=== PATIENT | female | born 1990 | race Caucasian/White ===

== ENCOUNTER 2017-12-15 01:01 | Emergency (ER) | payer BC ==
[2017-12-15 01:09] VITALS: RESP 18; TEMP 97.9
[2017-12-15] MEDS ORDERED: ACETAMINOPHEN TAB 500 MG TAB PO STA (02:16)
--- NOTE | 2017-12-15 02:22 | XR ---
EXAMINATION TYPE: XR foot complete RT DATE OF EXAM: 12/15/2017 COMPARISON: NONE HISTORY: Foot pain TECHNIQUE: 3 views FINDINGS: I see no fracture nor dislocation. Joint spaces are normal. Metatarsals are intact. IMPRESSION: Negative right foot exam.
[2017-12-15] MEDS ORDERED: KETOROLAC 30 MG/ML 1 ML VIAL IM STA (03:22)
--- NOTE | 2017-12-15 03:24 | XR ---
EXAMINATION TYPE: XR ankle complete RT DATE OF EXAM: 12/15/2017 COMPARISON: NONE HISTORY: Ankle pain TECHNIQUE: 3 views FINDINGS: Ankle mortise is anatomic. I see no fracture nor dislocation. IMPRESSION: Normal right ankle.
[2017-12-15] MEDS ORDERED: KETOROLAC 30 MG/ML 1 ML VIAL IVP STA (03:40)
[2017-12-15 06:31] VITALS: BP 96/54; PULSE 97
--- NOTE | 2017-12-15 06:53 | US ---
EXAM: US Duplex Right Lower Extremity Veins CLINICAL HISTORY: Reason: Pain TECHNIQUE: Real-time duplex ultrasound scan of the right lower extremity veins integrating B-mode two-dimensional vascular structure, Doppler spectral analysis, color flow Doppler imaging and compression. COMPARISON: No relevant prior studies available. FINDINGS: Deep veins: Unremarkable. No DVT in the visualized common femoral, femoral, proximal deep femoral or popliteal veins. The veins demonstrate normal color flow, are normally compressible, with normal phasic flow and/or augmentation response. Superficial veins: No thrombus in the visualized great saphenous vein. IMPRESSION: No evidence of deep venous thrombosis.
--- NOTE | 2017-12-15 07:09 | ED ---
Lower Extremity Injury HPI - General Chief Complaint: Extremity Injury, Lower Stated Complaint: Ankle injury Time Seen by Provider: 12/15/17 01:11 Source: patient Mode of arrival: wheelchair Limitations: no limitations - History of Present Illness Initial Comments: 7 years old lady injured her right foot and she said The steps no complaining about the pain in the right foot and she said she's having some discomfort in the ankle as well and no leg feels stiff may she feels discomfort in the whole right clavicle no other injuries no headaches no neck stiffness no chest pain or shortness of breath she does smoke and denies any history of PE or DVT - Related Data Home Medications Medication Instructions Recorded Confirmed Sertraline [Zoloft] 200 mg PO DAILY 10/20/13 12/15/17 Allergies Allergy/AdvReac Type Severity Reaction Status Date / Time No Known Allergies Allergy Verified 12/15/17 01:09 Review of Systems ROS Statement: Those systems with pertinent positive or pertinent negative responses have been documented in the HPI. ROS Other: All systems not noted in ROS Statement are negative. Past Medical History Past Medical History: No Reported History History of Any Multi-Drug Resistant Organisms: None Reported Past Surgical History: No Surgical Hx Reported Past Anesthesia/Blood Transfusion Reactions: No Reported Reaction Past Psychological History: Anxiety, Depression Smoking Status: Current every day smoker Past Alcohol Use History: None Reported Past Drug Use History: None Reported - Past Family History Mother Family Medical History: No Reported History General Exam - General Exam Comments Initial Comments: General: The patient is awake and alert, in no distress, and does not appear acutely ill. Skin: Skin is warm and dry and no rashes or lesions are noted. Eye: Pupils are equal, round and reactive to light, extra-ocular movements are intact; there is normal conjunctiva bilaterally. Ears, nose, mouth and throat: There are moist mucous membranes and no oral lesions. Neck: The neck is supple, there is no tenderness or JVD. Cardiovascular: There is a regular rate and rhythm. No murmur, rub or gallop is appreciated. Respiratory: To auscultation bilateral, no wheezing no rhonchi no distress respiratory henderson noticed Gastrointestinal: Soft, non-distended, non-tender abdomen without masses or organomegaly noted. There is no rebound or guarding present. Bowel sounds are unremarkable. Back: There is no tenderness to palpation in the midline. There is no obvious deformity. Musculoskeletal: Right foot noticed some mild tenderness on the dorsal surface she is also tender in the plantar surface at the distal part of the second and third metatarsal tender calves as well as the distal posterior right thigh Neurological: CN II-XII intact, Cranial nerves III through XII are intact. There are no obvious motor or sensory deficits. Coordination appears grossly intact. Speech is normal. Psychiatric: Cooperative, appropriate mood & affect, normal judgment. Limitations: no limitations Course Vital Signs 12/15/17 12/15/17 12/15/17 01:04 03:39 05:24 Temperature 97.9 F Pulse Rate 110 H 87 71 Respiratory 18 18 18 Rate Blood Pressure 147/97 118/57 121/53 O2 Sat by Pulse 99 98 97 Oximetry 12/15/17 06:29 Temperature Pulse Rate 97 Respiratory 18 Rate Blood Pressure 96/54 O2 Sat by Pulse 100 Oximetry Medical Decision Making - Lab Data Lab Results 12/15/17 Range/Units 03:37 D-Dimer 0.64 H (<0.60) mg/L FEU Disposition Clinical Impression: Elevated d-dimer, Foot injury, Pain in right leg Disposition: HOME SELF-CARE Condition: Good Instructions: Foot Sprain (ED) Additional Instructions: She is given a prescription for the crutches advised to ice and elevation and Advil on an as-needed basis Is patient prescribed a controlled substance at d/c from ED?: No Referrals: None,Stated [Primary Care Provider] - 1-2 days Kizzy Coy MD [STAFF PHYSICIAN] - 1-2 days
== END 2017-12-15 07:28 | disposition home or self-care (01) ==
LOC: EC 01:01
DX: S99.921A Unspecified injury of right foot, initial encounter (principal); R79.1 Abnormal coagulation profile; F32.9 Major depressive disorder, single episode, unspecified; F41.9 Anxiety disorder, unspecified; F17.200 Nicotine dependence, unspecified, uncomplicated; Z53.8 Procedure and treatment not carried out for other reasons; Z79.899 Other long term (current) drug therapy; W10.9XXA Fall (on) (from) unspecified stairs and steps, initial encounter
CPT/HCPCS: 36415; 85379; 73610; 73630; 93971; 99284; 96374; J1885

== ENCOUNTER 2017-12-19 20:14 | Emergency (ER) | payer BC, OTHER ==
[2017-12-19] MEDS ORDERED: SODIUM CHLORIDE 0.9% 1,000 ML IV ONE (21:30)
--- NOTE | 2017-12-19 21:30 | ED ---
General Adult HPI - General Chief complaint: Recheck/Abnormal Lab/Rx Stated complaint: Fall Time Seen by Provider: 12/19/17 21:03 Source: patient Mode of arrival: ambulatory Limitations: no limitations - History of Present Illness Initial comments: Patient is a 27-year-old female who presents for possible . She states that 6 months ago, she took 5 tests at home which are positive and then she follow-up with her doctor and was told that she then had negative tests. She had regular menses in between and her last menstrual period was one month ago. However, she took 2 tests today and decided to come in because of the inconsistencies 6 months ago. She is also concerned because approximately one week ago she fell down one step landing her buttocks but did not injure her abdomen. Also, she is adamant that she has not had any abdominal pain, urinary symptoms, vaginal bleeding or even slight cramping. - Related Data Home Medications Medication Instructions Recorded Confirmed Desvenlafaxine [Desvenlafaxine ER] 50 mg PO DAILY 12/19/17 12/19/17 Gabapentin [Neurontin] 200 mg PO QAM 12/19/17 12/19/17 Gabapentin [Neurontin] 300 mg PO BID 12/19/17 12/19/17 LORazepam [Ativan] 1 mg PO DAILY PRN 12/19/17 12/19/17 Allergies Allergy/AdvReac Type Severity Reaction Status Date / Time No Known Allergies Allergy Verified 12/19/17 21:02 Review of Systems ROS Statement: Those systems with pertinent positive or pertinent negative responses have been documented in the HPI. Constitutional: Negative for chills, fatigue and fever. HENT: Negative for congestion. Respiratory: Negative for chest tightness, shortness of breath and wheezing. Negative for cough Cardiovascular: Negative for chest pain and palpitations. Gastrointestinal: Negative for abdominal pain. Negative for abdominal distention , diarrhea, nausea and vomiting. Genitourinary: Negative for dysuria. Musculoskeletal: Negative for back pain, neck pain and neck stiffness. Skin: Negative for color change. Neurological: Negative for dizziness, speech difficulty, weakness and light- headedness. Psychiatric/Behavioral: Negative for agitation and confusion. Negative for anxiety ROS Other: All systems not noted in ROS Statement are negative. Past Medical History Past Medical History: No Reported History History of Any Multi-Drug Resistant Organisms: None Reported Past Surgical History: No Surgical Hx Reported Past Anesthesia/Blood Transfusion Reactions: No Reported Reaction Past Psychological History: Anxiety, Depression, Panic Disorder, PTSD Smoking Status: Current every day smoker Past Alcohol Use History: Occasional Past Drug Use History: Marijuana - Past Family History Mother Family Medical History: No Reported History General Exam - General Exam Comments Initial Comments: Constitutional: Pt is oriented to person, place, and time. Pt appears well- developed and well-nourished. No distress. HENT: Head: Normocephalic and atraumatic. Eyes: EOM are normal. Neck: Normal range of motion. Neck supple. Cardiovascular: Normal rate, regular rhythm, S1 normal, S2 normal and normal heart sounds. Exam reveals no gallop and no friction rub. No murmur heard. Pulmonary/Chest: Effort normal and breath sounds normal. No tachypnea and no bradypnea. No respiratory distress. No wheezes or rales noted. Abdominal: Soft. Bowel sounds are normal. Pt exhibits no shifting dullness, no distension, no pulsatile liver, no fluid wave, no abdominal bruit and no ascites. There is no tenderness. There is no rigidity, no rebound, no guarding, no tenderness at McBurney's point and negative Javier's sign. Musculoskeletal: Normal range of motion. Neurological: Pt is alert and oriented to person, place, and time. No cranial nerve deficit. Skin: Skin is warm and dry. No rash noted. Pt is not diaphoretic. No erythema. No pallor. Psychiatric: Pt has a normal mood and affect. Pt behavior is normal. Thought content normal. Limitations: no limitations Course Vital Signs 12/19/17 20:37 Temperature 98.3 F Pulse Rate 103 H Respiratory 18 Rate Blood Pressure 145/85 O2 Sat by Pulse 99 Oximetry Medical Decision Making - Medical Decision Making Laboratory studies showed that there is no evidence of urinary tract infection or a letter lites derangements. On reexamination, the patient was not tachycardic and fluids were not given as the patient was a difficult IV stick. Because the patient was tolerating by mouth, it was determined that the patient could be by mouth fluid resuscitated. Additionally, beta hCG was measured at 13 ,931. He was advised to the patient that because she was not having any abdominal pain, vaginal bleeding, urinary symptoms, transvaginal ultrasound could be performed on an outpatient basis. Patient was agreeable to plan and stated that she did have an geothermal sheet metal worker that she do follow up with.Explained all labs and diagnostic test results and that we will discharge the patient home and patient is to follow up with OB in 1-2 days and return to the ED if symptoms worsen. Pt is agreeable to plan. - Lab Data Result diagrams: 12/19/17 21:28 Lab Results 12/19/17 12/19/17 Range/Units 21:21 21:28 Sodium 138 (137-145) mmol/L Potassium 3.9 (3.5-5.1) mmol/L Chloride 105 (98-107) mmol/L Carbon Dioxide 19 L (22-30) mmol/L Anion Gap 14 mmol/L BUN 13 (7-17) mg/dL Creatinine 0.60 (0.52-1.04) mg/dL Est GFR (CKD-EPI)AfAm >90 (>60 ml/min/1.73 sqM) Est GFR (CKD-EPI)NonAf >90 (>60 ml/min/1.73 sqM) Glucose 109 H (74-99) mg/dL Calcium 9.3 (8.4-10.2) mg/dL Magnesium 1.8 (1.6-2.3) mg/dL Total Bilirubin 0.3 (0.2-1.3) mg/dL AST 21 (14-36) U/L ALT 23 (9-52) U/L Alkaline Phosphatase 85 (38-126) U/L Total Protein 6.9 (6.3-8.2) g/dL Albumin 4.2 (3.5-5.0) g/dL HCG, Quant 36754.5 mIU/mL Urine Color Yellow Urine Appearance Cloudy H (Clear) Urine pH 6.0 (5.0-8.0) Ur Specific [place] 1.024 (1.001-1.035) Urine Protein Negative (Negative) Urine Glucose (UA) Negative (Negative) Urine Ketones Trace H (Negative) Urine Blood Negative (Negative) Urine Nitrite Negative (Negative) Urine Bilirubin Negative (Negative) Urine Urobilinogen 2.0 (<2.0) mg/dL Ur Leukocyte Esterase Small H (Negative) Urine RBC 1 (0-5) /hpf Urine WBC 1 (0-5) /hpf Ur Squamous Epith Cells 11 H (0-4) /hpf Urine Bacteria Rare H (None) /hpf Urine Mucus Rare H (None) /hpf Disposition Clinical Impression: Disposition: HOME SELF-CARE Condition: Good Instructions: (ED) Is patient prescribed a controlled substance at d/c from ED?: No Referrals: None,Stated [Primary Care Provider] - 1-2 days Dolores Latham DO [Doctor of Osteopathic Medicine] - 1-2 days Time of Disposition: 23:01
[2017-12-19 21:55] LABS: Appearance,Urine Cloudy (Clear); Bacteria,Urine Rare /hpf; Bilirubin,Urine Negative (Negative); Blood,Urine Negative (Negative); Color,Urine Yellow; Glucose,Urine (UA) Negative (Negative); Ketones,Urine Trace (Negative); Leukocyte Esterase,Urine Small (Negative); Mucus,Urine Rare /hpf; Nitrite,Urine Negative (Negative); Protein,Urine Negative (Negative); RBC,Urine 1 /hpf (0-5); Specific Gravity,Urine 1.024 (1.001-1.035); Squamous Epithelial Cell,Urine 11 /hpf (0-4); WBC,Urine 1 /hpf (0-5)
[2017-12-19 22:01] LABS: ALT 23 U/L (9-52); AST 21 U/L (14-36); Albumin 4.2 g/dL (3.5-5.0); Alkaline Phosphatase 85 U/L (38-126); Anion Gap 14 mmol/L; Blood Urea Nitrogen 13 mg/dL (7-17); Calcium 9.3 mg/dL (8.4-10.2); Carbon Dioxide 19 mmol/L (22-30); Chloride 105 mmol/L (98-107); Glucose 109 mg/dL (74-99); Magnesium 1.8 mg/dL (1.6-2.3); Potassium 3.9 mmol/L (3.5-5.1); Sodium 138 mmol/L (137-145); Total Bilirubin 0.3 mg/dL (0.2-1.3); Total Protein 6.9 g/dL (6.3-8.2)
[2017-12-19 22:17] LABS: HCG,Quantitative Serum 13931.5 mIU/mL
[2017-12-19 23:28] VITALS: BP 132/68; PULSE 98; RESP 17; TEMP 97.6
== END 2017-12-19 23:28 | disposition home or self-care (01) ==
LOC: EC 20:14
DX: Z32.01 Encounter for pregnancy test, result positive (principal); F41.0 Panic disorder [episodic paroxysmal anxiety]; F32.9 Major depressive disorder, single episode, unspecified; F43.10 Post-traumatic stress disorder, unspecified; F17.200 Nicotine dependence, unspecified, uncomplicated; Z79.899 Other long term (current) drug therapy; W10.9XXA Fall (on) (from) unspecified stairs and steps, initial encounter; Z53.8 Procedure and treatment not carried out for other reasons
CPT/HCPCS: 36415; 80053; 81001; 83735; 84702; 99283

== ENCOUNTER 2018-01-24 14:50 | Emergency (ER) | payer OTHER ==
[2018-01-24 15:01] VITALS: RESP 18
[2018-01-24] MEDS ORDERED: SODIUM CHLORIDE 0.9% 1,000 ML IV STA ×2 (15:10)
--- NOTE | 2018-01-24 15:13 | ED ---
Abdominal Pain HPI - General Chief Complaint: Abdominal Pain Stated Complaint: 11 wks preg, Cramping Time Seen by Provider: 01/24/18 15:00 Source: patient, RN notes reviewed, old records reviewed Mode of arrival: ambulatory Limitations: no limitations - History of Present Illness Initial Comments: This Patient is a 27-year-old female presents emergency department today with chief complaint of abdominal cramping. Patient states that she is currently 11 weeks . Patient states that her LEGAL OPERATIONS MANAGER is Dr. Ferrer. Patient states that she has been having some cramping for the past 2 days. She denies any other symptoms associated with the cramping. She denies any vaginal bleeding, or vaginal discharge. She denies any dysuria or hematuria. She denies any diarrhea, nausea or vomiting. Patient states she was concerned due to the history of previous miscarriage 9 months ago. She states that she just wanted to confirm that everything was okay. - Related Data Home Medications Medication Instructions Recorded Confirmed Desvenlafaxine [Desvenlafaxine ER] 50 mg PO DAILY 12/19/17 12/19/17 Gabapentin [Neurontin] 200 mg PO QAM 12/19/17 12/19/17 Gabapentin [Neurontin] 300 mg PO BID 12/19/17 12/19/17 LORazepam [Ativan] 1 mg PO DAILY PRN 12/19/17 12/19/17 Allergies Allergy/AdvReac Type Severity Reaction Status Date / Time No Known Allergies Allergy Verified 01/24/18 14:58 Review of Systems ROS Statement: Those systems with pertinent positive or pertinent negative responses have been documented in the HPI. ROS Other: All systems not noted in ROS Statement are negative. Past Medical History Past Medical History: No Reported History History of Any Multi-Drug Resistant Organisms: None Reported Past Surgical History: No Surgical Hx Reported Past Anesthesia/Blood Transfusion Reactions: No Reported Reaction Past Psychological History: Anxiety, Depression, Panic Disorder, PTSD Smoking Status: Current every day smoker Past Alcohol Use History: Occasional Past Drug Use History: Marijuana - Past Family History Mother Family Medical History: No Reported History General Exam - General Exam Comments Initial Comments: 27-year-old male. Alert and oriented. Limitations: no limitations General appearance: alert, in no apparent distress Head exam: Present: atraumatic, normocephalic, normal inspection Eye exam: Present: normal appearance, PERRL, EOMI. Absent: scleral icterus, conjunctival injection, periorbital swelling ENT exam: Present: normal exam, mucous membranes moist Neck exam: Present: normal inspection. Absent: tenderness, meningismus, lymphadenopathy Respiratory exam: Present: normal lung sounds bilaterally. Absent: respiratory distress, wheezes, rales, rhonchi, stridor Cardiovascular Exam: Present: regular rate, normal rhythm, normal heart sounds. Absent: systolic murmur, diastolic murmur, rubs, gallop, clicks GI/Abdominal exam: Present: soft, normal bowel sounds. Absent: distended, tenderness, guarding, rebound, rigid Extremities exam: Present: normal inspection, full ROM, normal capillary refill. Absent: tenderness, pedal edema, joint swelling, calf tenderness Back exam: Present: normal inspection Neurological exam: Present: alert, oriented X3, CN II-XII intact Psychiatric exam: Present: normal affect, normal mood Course Vital Signs 01/24/18 01/24/18 14:58 18:32 Temperature 98.0 F 97.6 F Pulse Rate 87 76 Respiratory 18 18 Rate Blood Pressure 140/62 132/71 O2 Sat by Pulse 98 98 Oximetry Medical Decision Making - Medical Decision Making This Patient is a 27-year-old female. Alert and oriented. No acute distress. 27-year-old female presents emergency department today with chief complaint of abdominal cramping. Patient states that she is currently 11 weeks . Patient states that her LEGAL OPERATIONS MANAGER is Dr. Ferrer. Patient states that she has been having some cramping for the past 2 days. She denies any other symptoms associated with the cramping. She denies any vaginal bleeding, or vaginal discharge. She has no abodmnal tenderness, denies leaking or vaginal bleeding. At this time labs obtained. Rh Positive. HCG is 58,000. Patient US is positive for 10 week IUP, [id number] HR. Patient feels well, has no other cramping and pain. Patient has been advised to follow up with PCP and return parameters were discussed. - Lab Data Result diagrams: 01/24/18 15:25 01/24/18 15:25 Lab Results 01/24/18 01/24/18 01/24/18 Range/Units 15:25 15:25 15:25 WBC 12.1 H (3.8-10.6) k/uL RBC 5.13 (3.80-5.40) m/uL Hgb 11.8 (11.4-16.0) gm/dL Hct 35.9 (34.0-46.0) % MCV 69.9 L (80.0-100.0) fL MCH 22.9 L (25.0-35.0) pg MCHC 32.8 (31.0-37.0) g/dL RDW 13.8 (11.5-15.5) % Plt Count 305 (150-450) k/uL Neutrophils % 70 % Lymphocytes % 23 % Monocytes % 4 % Eosinophils % 1 % Basophils % 0 % Neutrophils # 8.5 H (1.3-7.7) k/uL Lymphocytes # 2.8 (1.0-4.8) k/uL Monocytes # 0.5 (0-1.0) k/uL Eosinophils # 0.1 (0-0.7) k/uL Basophils # 0.0 (0-0.2) k/uL Microcytosis Moderate Sodium 139 (137-145) mmol/L Potassium 3.7 (3.5-5.1) mmol/L Chloride 109 H (98-107) mmol/L Carbon Dioxide 22 (22-30) mmol/L Anion Gap 8 mmol/L BUN 11 (7-17) mg/dL Creatinine 0.58 (0.52-1.04) mg/dL Est GFR (CKD-EPI)AfAm >90 (>60 ml/min/1.73 sqM) Est GFR (CKD-EPI)NonAf >90 (>60 ml/min/1.73 sqM) Glucose 99 (74-99) mg/dL Calcium 9.6 (8.4-10.2) mg/dL Total Bilirubin 0.2 (0.2-1.3) mg/dL AST 20 (14-36) U/L ALT 30 (9-52) U/L Alkaline Phosphatase 65 (38-126) U/L Total Protein 6.5 (6.3-8.2) g/dL Albumin 3.8 (3.5-5.0) g/dL Amylase 57 (30-110) U/L Lipase 68 (23-300) U/L HCG, Quant 92449.7 mIU/mL Urine Color Urine Appearance (Clear) Urine pH (5.0-8.0) Ur Specific [place] (1.001-1.035) Urine Protein (Negative) Urine Glucose (UA) (Negative) Urine Ketones (Negative) Urine Blood (Negative) Urine Nitrite (Negative) Urine Bilirubin (Negative) Urine Urobilinogen (<2.0) mg/dL Ur Leukocyte Esterase (Negative) Urine RBC (0-5) /hpf Urine WBC (0-5) /hpf Ur Squamous Epith Cells (0-4) /hpf Urine Mucus (None) /hpf Blood Type O Positive Blood Type Recheck [facility] 01/24/18 Range/Units 15:25 WBC (3.8-10.6) k/uL RBC (3.80-5.40) m/uL Hgb (11.4-16.0) gm/dL Hct (34.0-46.0) % MCV (80.0-100.0) fL MCH (25.0-35.0) pg MCHC (31.0-37.0) g/dL RDW (11.5-15.5) % Plt Count (150-450) k/uL Neutrophils % % Lymphocytes % % Monocytes % % Eosinophils % % Basophils % % Neutrophils # (1.3-7.7) k/uL Lymphocytes # (1.0-4.8) k/uL Monocytes # (0-1.0) k/uL Eosinophils # (0-0.7) k/uL Basophils # (0-0.2) k/uL Microcytosis Sodium (137-145) mmol/L Potassium (3.5-5.1) mmol/L Chloride (98-107) mmol/L Carbon Dioxide (22-30) mmol/L Anion Gap mmol/L BUN (7-17) mg/dL Creatinine (0.52-1.04) mg/dL Est GFR (CKD-EPI)AfAm (>60 ml/min/1.73 sqM) Est GFR (CKD-EPI)NonAf (>60 ml/min/1.73 sqM) Glucose (74-99) mg/dL Calcium (8.4-10.2) mg/dL Total Bilirubin (0.2-1.3) mg/dL AST (14-36) U/L ALT (9-52) U/L Alkaline Phosphatase (38-126) U/L Total Protein (6.3-8.2) g/dL Albumin (3.5-5.0) g/dL Amylase (30-110) U/L Lipase (23-300) U/L HCG, Quant mIU/mL Urine Color Yellow Urine Appearance Cloudy H (Clear) Urine pH 5.5 (5.0-8.0) Ur Specific [place] 1.028 (1.001-1.035) Urine Protein Trace H (Negative) Urine Glucose (UA) Negative (Negative) Urine Ketones Negative (Negative) Urine Blood Negative (Negative) Urine Nitrite Negative (Negative) Urine Bilirubin Negative (Negative) Urine Urobilinogen <2.0 (<2.0) mg/dL Ur Leukocyte Esterase Moderate H (Negative) Urine RBC 2 (0-5) /hpf Urine WBC 5 (0-5) /hpf Ur Squamous Epith Cells 49 H (0-4) /hpf Urine Mucus Occasional H (None) /hpf Blood Type Blood Type Recheck - Radiology Data Radiology results: report reviewed Normal 3 view hand. All 4 do left wrist. Single IUP measuring 10 weeks and 4 days. Isn't current crown-rump length. Cardiac activity 163 beats were minute. Disposition Clinical Impression: Abdominal cramping affecting , 10 weeks gestation of Disposition: HOME SELF-CARE Condition: Good Instructions: Abdominal Pain in (ED) Additional Instructions: Patient can take Tylenol for pain. Patient should follow-up with LEGAL OPERATIONS MANAGER. Return to emergency department if any alarming signs or symptoms occur. Is patient prescribed a controlled substance at d/c from ED?: No Referrals: None,Stated [Primary Care Provider] - 1-2 days Time of Disposition: 18:05
[2018-01-24 15:41] LABS: Basophils % (A) 0 %; Eosinophils # (A) 0.1 k/uL (0-0.7); Eosinophils % (A) 1 %; HCT 35.9 % (34.0-46.0); HGB 11.8 gm/dL (11.4-16.0); Lymphocytes # (A) 2.8 k/uL (1.0-4.8); Lymphocytes % (A) 23 %; MCH 22.9 pg (25.0-35.0); MCHC 32.8 g/dL (31.0-37.0); MCV 69.9 fL (80.0-100.0); Mean Platelet Volume 7.2; Microcytosis Moderate; Monocytes # (A) 0.5 k/uL (0-1.0); Monocytes % (A) 4 %; Neutrophils # (A) 8.5 k/uL (1.3-7.7); Neutrophils % (A) 70 %; Platelet Count 305 k/uL (150-450); RBC 5.13 m/uL (3.80-5.40); RDW 13.8 % (11.5-15.5); WBC 12.1 k/uL (3.8-10.6)
[2018-01-24 15:44] LABS: Appearance,Urine Cloudy (Clear); Bilirubin,Urine Negative (Negative); Blood,Urine Negative (Negative); Color,Urine Yellow; Glucose,Urine (UA) Negative (Negative); Ketones,Urine Negative (Negative); Leukocyte Esterase,Urine Moderate (Negative); Mucus,Urine Occasional /hpf; Nitrite,Urine Negative (Negative); PH, Urine 5.5 (5.0-8.0); Protein,Urine Trace (Negative); RBC,Urine 2 /hpf (0-5); Specific Gravity,Urine 1.028 (1.001-1.035); Squamous Epithelial Cell,Urine 49 /hpf (0-4); Urobilinogen,Urine <2.0 mg/dL (<2.0); WBC,Urine 5 /hpf (0-5)
[2018-01-24 15:49] LABS: ALT 30 U/L (9-52); AST 20 U/L (14-36); Albumin 3.8 g/dL (3.5-5.0); Alkaline Phosphatase 65 U/L (38-126); Amylase 57 U/L (30-110); Anion Gap 8 mmol/L; Blood Urea Nitrogen 11 mg/dL (7-17); Calcium 9.6 mg/dL (8.4-10.2); Carbon Dioxide 22 mmol/L (22-30); Chloride 109 mmol/L (98-107); Glucose 99 mg/dL (74-99); Lipase 68 U/L (23-300); Potassium 3.7 mmol/L (3.5-5.1); Sodium 139 mmol/L (137-145); Total Bilirubin 0.2 mg/dL (0.2-1.3); Total Protein 6.5 g/dL (6.3-8.2)
[2018-01-24 16:30] LABS: HCG,Quantitative Serum 58212.7 mIU/mL
--- NOTE | 2018-01-24 18:01 | US ---
EXAMINATION TYPE: Transabdominal DATE OF EXAM: 09/16/17 COMPARISON: NONE CLINICAL HISTORY: Pain. EXAM PERFORMED: Transvaginal (TV) and Transabdominal (TA) EXAM MEASUREMENTS: GESTATIONAL AGE / DATING Physician Established: (10 weeks/3 days) EDC: 08/19/18 Dates by LMP: LMP unknown Dates by First Scan: No previous this is first scan Dates by Current Scan for: (10 weeks/4 days) EDC: 08/18/18 MATERNAL ANATOMY Uterus: Retroverted, wnl; 13.1 x 8.2 x 8.9 cm Right Ovary: wnl, 2.9 x 1.6 x 1.1 cm Left Ovary: ?corpus luteum (1.8 x 1.7 x 1.9 cm); 3.2 x 2.2 x 2.1 cm Post CDS / Adnexa: wnl Presence of free fluid: No Presence of corpus luteal cyst: yes; Lt ovary 1.8 x 1.7 x 1.9 cm Presence of subchorionic bleed: No GESTATION / SURVEY CRL: 3.7 cm (10 weeks/4 days) Yolk Sac (normal less than 6mm): 4 mm Heart Rate: 163 bpm Rhythm: Normal IUP: Viable IUP Date of LMP: Unsure Beta HcG (if available): Not available at this time *Initially entered in 09/19/18 as TARA was supposed to be 08/19/18. IMPRESSION: 1. Single intrauterine gestation estimated at 10 weeks 4 days gestation based on current crown-rump l ength. Cardiac activity measures 163 bpm.
[2018-01-24 18:33] VITALS: BP 132/71; PULSE 76; TEMP 97.6
== END 2018-01-24 18:33 | disposition home or self-care (01) ==
LOC: EC 14:50
DX: O99.89 Other specified diseases and conditions complicating pregnancy, childbirth and the puerperium (principal); R10.9 Unspecified abdominal pain; O99.331 Smoking (tobacco) complicating pregnancy, first trimester; F17.200 Nicotine dependence, unspecified, uncomplicated; O99.341 Other mental disorders complicating pregnancy, first trimester; F41.9 Anxiety disorder, unspecified; F32.9 Major depressive disorder, single episode, unspecified; F43.10 Post-traumatic stress disorder, unspecified; Z3A.10 10 weeks gestation of pregnancy; Z79.899 Other long term (current) drug therapy
CPT/HCPCS: 36415; 76801; 76817; 80053; 81001; 82150; 83690; 84702; 85025; 86900; 86901; 87086; 96360; 96361; 99284

== ENCOUNTER 2018-06-19 15:27 | Outpatient (CLI) | payer SELFPAY ==
[2018-06-19 16:44] VITALS: PULSE 100; RESP 16; TEMP 97.5
== END 2018-06-19 16:45 | disposition home or self-care (01) ==
LOC: FBPOP 15:27
PROVIDERS: ATTEND Obstetrics & Gynecology
DX: O36.8130 Decreased fetal movements, third trimester, not applicable or unspecified (principal)
CPT/HCPCS: 59025; 99213

== ENCOUNTER → 2018-07-07 | Outpatient (CLI) | payer SELFPAY | END | disposition home or self-care (01) | LOC: LABWHC1 12:43 | PROVIDERS: ATTEND Otolaryngology | DX: E04.1 Nontoxic single thyroid nodule (principal) | CPT/HCPCS: 36415; 84439; 84443; 86376 ==

== ENCOUNTER → 2018-07-24 | Outpatient (CLI) | payer SELFPAY ==
--- NOTE | 2018-07-25 15:08 | US ---
EXAMINATION TYPE: US thyroid st tissue head/neck DATE OF EXAM: 07/24/2018 COMPARISON: NONE CLINICAL HISTORY: E04.1 thyroid nodule. Difficulty swallowing GLAND SIZE: Right Lobe: 4.8 x 1.8 x 1.8 cm Overall Parenchyma: homogenous Left Lobe: 4.7 x 1.6 x 1.9 cm Overall Parenchyma: homogeneous Isthmus Thickness: 0.4 cm NODULES RIGHT: # of nodules measured on right: 0 LEFT: # of nodules measured on left: 0 ISTHMUS: # of nodules measured in the isthmus: 0 Bilateral neck scanned, normal appearing lymph nodes noted IMPRESSION: Prominent size of the homogeneous thyroid gland with no discrete measurable thyroid nodule.
== END | disposition home or self-care (01) ==
LOC: RADUSWWP 16:37
PROVIDERS: ATTEND Otolaryngology
DX: E04.1 Nontoxic single thyroid nodule (principal)
CPT/HCPCS: 76536

== ENCOUNTER 2018-08-03 14:13 | Outpatient (CLI) | payer SELFPAY ==
[2018-08-03 15:48] VITALS: BP 135/74; PULSE 102; RESP 18; TEMP 97.9
--- NOTE | 2018-08-07 10:47 | P.MSEPDOC ---
Presenting Problems - Arrival Data Date of Arrival on Unit: 08/03/18 Time of Arrival on Unit: 14:20 Mode of Transport: Ambulatory - Complaint OB-Reason for Admission/Chief Complaint: Decreased Movement Comment: first child adopted out Medical History - Information : 3 Para: 2 Term: 2 : 0 Abortions: Spontaneous or Elective: 0 Number of Living Children: 2 - Gestational Age Gestational Age by TARA (wks/days): 37 Weeks and 5 Days Review of Systems - Review of Systems Constitutional: No problems Breast: No problems ENT: No problems Cardiovascular: No problems Respiratory: No problems Gastrointestinal: No problems Genitourinary: No problems Musculoskeletal: No problems Neurological: No problems Skin: No problems Vital Signs - Temperature Temperature: 97.9 F Temperature Source: Oral - Pulse Right Brachial Pulse Rate: 102 Pulse Assessment Method: Automatic Cuff - Respirations Respiratory Rate: 18 Oxygen Delivery Method: Room Air O2 Sat by Pulse Oximetry: 97 - Blood Pressure Right Arm Blood Pressure: 135/74 Blood Pressure Mean: 94 Blood Pressure Source: Automatic Cuff Medical Screen Scoring (Pre) - Cervical Exam Dilation: 1-3 cm = 1 Membranes: Intact - Uterine Contractions Frequency: N/A Duration: N/A Intensity: N/A - Maternal Vital Signs Maternal Temperature: N/A Maternal Blood Pressure: N/A Signs of Preeclampsia: N/A Maternal Respirations: N/A - Pain Assessment Pain Location and Character: Abdomen Pain Scale Used: Numeric (1 - 10) Pain Intensity: 1 Pain Description: *Acute Pain Frequency: Intermittent Pain Behavior: None Exhibited - Maternal Trauma Maternal Trauma: N/A - Assessment Baseline FHR: 140 Heart Rate - NICHD Category: Category I (Normal) = 0 NST: Reactive Position: N/A Station: N/A - Total Score Total Score (Pre): 1 - Level of Risk Level of Risk: Low (0-5) Physician Notification (Pre) - Physician Notified Physician Notified Date: 08/03/18 Physician Notified Time: 15:05 Physician/Practitioner Notifed:: yeni Spoke With: yeni New Order Received: Yes - Notification Comment Comment: discharge order Medical Screen Scoring (Post) - Cervical Exam Dilation: 1-3 cm = 1 Effacement: Exam Deferred - Uterine Contractions Frequency: N/A Duration: N/A Intensity: N/A - Maternal Vital Signs Maternal Temperature: N/A Signs of Preeclampsia: N/A Maternal Respirations: N/A - Pain Assessment Pain Scale Used: Numeric (1 - 10) Pain Intensity: 1 Pain Frequency: Intermittent - Maternal Trauma Maternal Trauma: N/A - Assessment Heart Rate: 140 Heart Rate - NICHD Category: Category I (Normal) = 0 NST: Reactive Position: N/A Station: N/A - Total Score Total Score (Post): 1 - Post Treatment Level of Risk Post Treatment Level of Risk: Low (0-5) Physician Notification (Post) - Physician Notified Physician Notified Date: 08/03/18 Physician Notified Time: 15:05 Physician/Practitioner Notified:: yeni New Order Received: No Disposition - Disposition OB Disposition: Physician follow up in office, Discharge to home Discharge Date: 08/03/18 Discharge Time: 15:20 I agree with the RN Medical Screening Exam: Yes Risk & Benefit of care provided described in d/c instruction: Yes Diagnosis: DECREASED MOVEMENTS, THIRD TRIMESTER, UNSP
== END 2018-08-03 15:20 | disposition home or self-care (01) ==
LOC: FBPOP 14:13
PROVIDERS: ATTEND Obstetrics & Gynecology
DX: O36.8130 Decreased fetal movements, third trimester, not applicable or unspecified (principal); Z3A.37 37 weeks gestation of pregnancy
CPT/HCPCS: 59025; 99213

== ENCOUNTER 2018-08-06 07:30 | Inpatient (IN) | payer OTHER ==
[2018-08-06] MEDS ORDERED: LIDOCAINE 0.5% (PF) 5 MG/ML (50 ML SDV) SQ PRN (07:56)
[2018-08-06] MEDS ORDERED: OXYTOCIN 10 UNIT/ML 1 ML VIAL IM PRN (07:56)
[2018-08-06] MEDS ORDERED: CARBOPROST TROMETHAMINE 250 MCG/ML 1 ML AMP IM PRN (07:56)
[2018-08-06] MEDS ORDERED: TERBUTALINE 1 MG/ML VIAL SQ PRN (07:56)
[2018-08-06] MEDS ORDERED: METHYLERGONOVINE 0.2 MG/ML 1 ML AMP IM PRN (07:56)
[2018-08-06] MEDS ORDERED: LACTATED RINGERS 1,000 ML IV SCH ×2 (08:00)
[2018-08-06 08:01] VITALS: BMI 38.7
--- NOTE | 2018-08-06 08:01 | P.HPOB ---
History of Present Illness H&P Date: 08/06/18 This is a 27 rolled white female 4 para 2012 EDC 08/19/2018 at 38 weeks gestation. Patient presents today in active spontaneous labor, strong regular uterine contractions. She denies fluid leakage or vaginal bleeding. Fetus is been active throughout the . Past medical history significant for anxiety and depression. Past surgical history is negative. Current medications gabapentin 3 times a day, vitamin daily, Pristiq 50 mg once daily. ALLERGIES none known. Family history significant for diabetes. Reproductive history significant for 2 previous spontaneous vaginal deliveries, both at 38 weeks gestation, uncomplicated. Social history patient is , she currently smokes one half pack per day tobacco daily, she denies alcohol or drug use. history is significant for blood type O+, rubella status immune. VDRL testing, urine culture, hepatitis B surface antigen, HIV testing, gonorrhea and chlamydia cultures, group B strep cultures all negative. One-hour Glucola 122. On exam this is a pleasant white female, she is 5 foot 1 inch, 220 pounds, vital signs are stable and she is afebrile. The general physical exam is within normal limits. Cervix is 7-8 cm dilated, 90% effaced, -1 station, vertex presentation, intact membranes. heart rate is in the 150s with reassuring pattern and accelerations noted. Impression: 38 week intrauterine , active spontaneous labor. All signs reassuring. Plan: Artificial amniorrhexis will be performed. Epidural likely placed per her request. Anticipating normal spontaneous vaginal delivery. Review of Systems Constitutional: Reports as per HPI Past Medical History Past Medical History: No Reported History History of Any Multi-Drug Resistant Organisms: None Reported Past Surgical History: No Surgical Hx Reported Past Anesthesia/Blood Transfusion Reactions: No Reported Reaction Smoking Status: Current every day smoker - Past Family History Mother Family Medical History: No Reported History Medications and Allergies Home Medications Medication Instructions Recorded Confirmed Type Desvenlafaxine [Desvenlafaxine ER] 50 mg PO DAILY MDD 50 mg 12/19/17 08/03/18 History Gabapentin [Neurontin] 300 mg PO BID 12/19/17 08/03/18 History Allergies Allergy/AdvReac Type Severity Reaction Status Date / Time No Known Allergies Allergy Verified 08/06/18 07:56 Exam Intake and Output 08/05/18 08/06/18 08/06/18 22:59 06:59 14:59 Other: Weight 96.162 kg See dictation under HPI please Assessment and Plan Assessment: 38 week intrauterine , active spontaneous labor. All signs reassuring. Plan: IV access is been obtained. Close maternal and surveillance. Artificial amniorrhexis will be performed. Anticipate normal spontaneous vaginal delivery. Time with Patient: Less than 30
[2018-08-06] MEDS ORDERED: SODIUM CHLORIDE 0.9% 100 ML BAG ONE (08:20)
[2018-08-06] MEDS ORDERED: ROPIVACAINE 5MG/ML 20ML VIAL ONE (08:20)
[2018-08-06] MEDS ORDERED: fentaNYL (PF) 50 MCG/ML 5 ML AMP ONE (08:20)
[2018-08-06 08:42] LABS: Basophils % (A) 0 %; Eosinophils # (A) 0.1 k/uL (0-0.7); Eosinophils % (A) 1 %; HGB 11.5 gm/dL (11.4-16.0); Lymphocytes # (A) 2.3 k/uL (1.0-4.8); Lymphocytes % (A) 18 %; MCHC 32.1 g/dL (31.0-37.0); MCV 74.8 fL (80.0-100.0); Mean Platelet Volume 8.8; Microcytosis Slight; Monocytes # (A) 0.6 k/uL (0-1.0); Monocytes % (A) 5 %; Neutrophils # (A) 9.4 k/uL (1.3-7.7); Neutrophils % (A) 75 %; Platelet Count 255 k/uL (150-450); RBC 4.81 m/uL (3.80-5.40); RDW 15.2 % (11.5-15.5); WBC 12.6 k/uL (3.8-10.6)
[2018-08-06] MEDS ORDERED: ACETAMINOPHEN TAB 325 MG TAB PO PRN (09:40)
[2018-08-06] MEDS ORDERED: BENZOCAINE/MENTHOL SPRAY 1 GM/SPRAY AEROSOL TOPICAL PRN (09:40)
[2018-08-06] MEDS ORDERED: diphenhydrAMINE 50 MG CAP PO PRN (09:40)
[2018-08-06] MEDS ORDERED: WITCH HAZEL 1 EACH MED..PAD TOPICAL PRN (09:40)
[2018-08-06] MEDS ORDERED: SIMETHICONE 80 MG CHEWABLE PO PRN (09:40)
[2018-08-06] MEDS ORDERED: ZOLPIDEM 5 MG TAB PO PRN (09:40)
[2018-08-06] MEDS ORDERED: diphenhydrAMINE 25 MG CAP PO PRN (09:40)
[2018-08-06] MEDS ORDERED: HYDROCORTISONE 2.5% RECTAL CREAM 30 GM TUBE RECTAL PRN (09:40)
[2018-08-06] MEDS ORDERED: diphenhydrAMINE 50 MG/ML 1 ML VIAL IVP PRN ×2 (09:40)
[2018-08-06] MEDS ORDERED: LANOLIN CREAM 5 GM TUBE TOPICAL PRN (09:40)
--- NOTE | 2018-08-06 09:40 | P.PROBDLV ---
Vaginal Delivery Note - . Vaginal Delivery Note: This is a 27 rolled white female 4 para 2012 EDC 08/19/2018 at 38 and one sevenths weeks' gestation. Patient presented this morning in active spontaneous labor from home. She denied vaginal bleeding or fluid leakage. has been essentially unremarkable, group B strep cultures negative, blood type O positive, rubella status immune. Please see dictated history and physical for details. On admission patient was 7-8 cm dilated, vertex presentation. Artificial amniorrhexis revealed clear fluid. She did request and received an epidural. Oxytocin augmentation was not deemed necessary. She became completely dilated at 0915 hours and began the second stage of labor at that time. heart rate was reassuring throughout the first and second stages of labor. Perineal body was prepped and draped in usual sterile fashion. With excellent maternal expulsive efforts 's head delivered occiput anterior and restituted accordingly. There was no nuchal cord noted. The right or anterior shoulder was delivered from underneath the pubic symphysis at which time the oropharynx, nasopharynx, and external nares were all bulb suctioned on the perineal body. Patient was officially delivered of a liveborn female infant at 0924 hours. Umbilical cord was doubly clamped and ligated, she was handed to waiting nurses for evaluation where scores of 8 and 9 at one and 5 minutes respectively were given. weighed 6 lbs. 4 oz. or 285 g. The placenta delivered spontaneously, it was inspected and noted to be intact with trivascular cord at 0929 hours. Uterus is massaged, bleeding is appropriate. Inspection of the cervix, vagina, perineum, periurethral, and perirectal areas revealed no lacerations and no defects. Fundus is firm and in the midline, symmetric and 18 week size upon completion of delivery. All sponge needle and instrument counts are correct. Patient and her family are allowed to begin the bonding experience in the LDR.
[2018-08-06] MEDS ORDERED: OXYTOCIN 20 UNITS/1000 ML NS 1,000 ML IV SCH (09:45)
[2018-08-06] MEDS: IBUPROFEN 600 MG TAB PO PRN ×2 (10:11→18:04)
[2018-08-06] MEDS: SENNOSIDES-DOCUSATE SODIUM 1 EACH TAB PO SCH (23:19)
[2018-08-07] MEDS: IBUPROFEN 600 MG TAB PO PRN ×3 (00:55→13:41)
[2018-08-07] MEDS: SENNOSIDES-DOCUSATE SODIUM 1 EACH TAB PO SCH (07:23)
[2018-08-07 07:44] LABS: Basophils # (A) 0.1 k/uL (0-0.2); Basophils % (A) 0 %; Eosinophils # (A) 0.2 k/uL (0-0.7); Eosinophils % (A) 2 %; HCT 33.3 % (34.0-46.0); HGB 10.4 gm/dL (11.4-16.0); Lymphocytes # (A) 3.5 k/uL (1.0-4.8); Lymphocytes % (A) 30 %; MCH 23.8 pg (25.0-35.0); MCHC 31.2 g/dL (31.0-37.0); MCV 76.5 fL (80.0-100.0); Mean Platelet Volume 8.4; Microcytosis Slight; Monocytes # (A) 0.6 k/uL (0-1.0); Monocytes % (A) 5 %; Neutrophils # (A) 7.1 k/uL (1.3-7.7); Neutrophils % (A) 61 %; Platelet Count 216 k/uL (150-450); RBC 4.35 m/uL (3.80-5.40); RDW 15.2 % (11.5-15.5); WBC 11.6 k/uL (3.8-10.6)
[2018-08-07 08:27] VITALS: BP 121/75; PULSE 75; RESP 17; TEMP 97.9
--- NOTE | 2018-08-07 10:14 | P.DS ---
Providers Date of admission: 08/06/18 07:46 Expected date of discharge: 08/07/18 Attending physician: Kate Mcdaniel Primary care physician: Stated None Hospital Course: This is a 27 rolled white female 4 para 2012 EDC 08/19/2018 at 38 and one sevenths weeks' gestation. Patient presented in active spontaneous labor after an unremarkable . Group B strep cultures negative, rubella status immune, blood type O+. Please see dictated history and physical for details. Spontaneous amniorrhexis revealed clear fluid. Epidural was placed per her request. She went on to swiftly deliver a liveborn female infant. scores were 8 and 9 at one and 5 minutes respectively. Infant weighed 2850 g or 6 lbs. 4 oz. Estimated blood loss recorded at 250 mL's. No lacerations or suturing was deemed necessary. Please see my dictated delivery note for details. This morning the patient is doing well. She is voiding, ambulating and passing flatus without difficulty. Vital signs are stable and she is afebrile. Fundus is firm and in the midline, symmetric and 18 week size. Extremities are negative for edema. Breast-feeding is going well. The patient has a breast pump and declines need for prescription for same. Bleeding is mild to moderate with no large clot passage. Pain is well controlled. Patient is therefore being discharged home in very good condition. She will follow-up with me in the office in 6 weeks. I have reminded her no intercourse , tampons or douching. She will use [id number] products as needed for pain, Advil or Aleve. She will continue taking her vitamin daily. She will call with any fevers shakes or chills, foul smelling or copious lochia , with the passage of large blood clots, with any pain not alleviated by over- the-counter products, or indeed with any concerns. is doing well and will follow-up with software performance engineer as recommended. Patient Condition at Discharge: Good Plan - Discharge Summary New Discharge Prescriptions: No Action Gabapentin [Neurontin] 300 mg PO BID Desvenlafaxine [Desvenlafaxine ER] 50 mg PO DAILY MDD 50 mg Discharge Medication List Desvenlafaxine [Desvenlafaxine ER] 50 mg PO DAILY MDD 50 mg 12/19/17 [History] Gabapentin [Neurontin] 300 mg PO BID 12/19/17 [History] Follow up Appointment(s)/Referral(s): Kate Mcdaniel MD [STAFF PHYSICIAN] - 6 Weeks
== END 2018-08-07 15:55 | disposition home or self-care (01) | DRG 807 ==
LOC: FBPOP 07:30 → 4FBP 07:46
PROVIDERS: ADMIT Obstetrics & Gynecology; ATTEND Obstetrics & Gynecology
PROC: 10E0XZZ Delivery of Products of Conception, External Approach (ICD-10-PCS; principal; 2018-08-06)
PROC: 00HU33Z Insertion of Infusion Device into Spinal Canal, Percutaneous Approach (ICD-10-PCS; 2018-08-06)
PROC: 3E0R3BZ Introduction of Anesthetic Agent into Spinal Canal, Percutaneous Approach (ICD-10-PCS; 2018-08-06)
DX: O99.334 Smoking (tobacco) complicating childbirth (principal); F32.9 Major depressive disorder, single episode, unspecified; F41.9 Anxiety disorder, unspecified; F17.210 Nicotine dependence, cigarettes, uncomplicated; O99.344 Other mental disorders complicating childbirth; Z37.0 Single live birth; Z3A.38 38 weeks gestation of pregnancy; Z79.899 Other long term (current) drug therapy; Z83.3 Family history of diabetes mellitus
CPT/HCPCS: 85025; 86850; 86900; 86901

== ENCOUNTER 2019-02-01 14:36 | Emergency (ER) | payer SELFPAY ==
[2019-02-01 14:44] VITALS: RESP 18
[2019-02-01] MEDS ORDERED: KETOROLAC 60 MG/2 ML VIAL IM STA (15:00)
--- NOTE | 2019-02-01 15:08 | ED ---
General Adult HPI - General Chief complaint: Fall Stated complaint: thrown from horse, back pain Time Seen by Provider: 02/01/19 14:40 Source: patient, RN notes reviewed Mode of arrival: ambulatory Limitations: no limitations - History of Present Illness Initial comments: This is a 28-year-old female presents emergency department after having fallen off her horse she states the horse about 5 and half feet tall at the back. Patient states she landed on her back she denies hitting her head she denies any neck pain she denies any extremity pain. Patient denies any upper back or chest pain. Patient points to about T12-L1 area of tenderness. patient denies any other injury but her back. - Related Data Home Medications Medication Instructions Recorded Confirmed Desvenlafaxine [Desvenlafaxine ER] 50 mg PO DAILY 12/19/17 02/01/19 Gabapentin [Neurontin] 300 mg PO HS 12/19/17 02/01/19 Ibuprofen [Advil] 400 mg PO Q8HR PRN 02/01/19 02/01/19 Previous Rx's Medication Instructions Recorded Ketorolac [Toradol] 10 mg PO Q6HR #15 tab 02/01/19 Allergies Allergy/AdvReac Type Severity Reaction Status Date / Time No Known Allergies Allergy Verified 02/01/19 14:53 Review of Systems ROS Statement: Those systems with pertinent positive or pertinent negative responses have been documented in the HPI. ROS Other: All systems not noted in ROS Statement are negative. Past Medical History Past Medical History: No Reported History History of Any Multi-Drug Resistant Organisms: None Reported Past Surgical History: No Surgical Hx Reported Past Anesthesia/Blood Transfusion Reactions: No Reported Reaction Past Psychological History: Anxiety, Depression, Panic Disorder, PTSD Smoking Status: Current every day smoker Past Alcohol Use History: Occasional Past Drug Use History: None Reported - Past Family History Mother Family Medical History: No Reported History General Exam - General Exam Comments Initial Comments: GENERAL: Patient is well-developed and well-nourished. Patient is nontoxic and well- hydrated and is in mild distress. ENT: Neck is soft and supple. No significant lymphadenopathy is noted. Oropharynx is clear. Moist mucous membranes. Neck has full range of motion without eliciting any pain. EYES: The sclera were anicteric and conjunctiva were pink and moist. Extraocular movements were intact and pupils were equal round and reactive to light. Eyelids were unremarkable. PULMONARY: Unlabored respirations. Good breath sounds bilaterally. No audible rales rhonchi or wheezing was noted. CARDIOVASCULAR: There is a regular rate and rhythm without any murmurs gallops or rubs. ABDOMEN: Soft and nontender with normal bowel sounds. SKIN: Skin is clear with no lesions or rashes and otherwise unremarkable. NEUROLOGIC: Patient is alert and oriented x3. Cranial nerves II through XII are grossly intact. Motor and sensory are also intact. Normal speech, volume and content. Symmetrical smile. MUSCULOSKELETAL: Normal extremities with adequate strength and full range of motion. Patient has tenderness at lower thoracic region and upper lumbar region LYMPHATICS: No significant lymphadenopathy is noted PSYCHIATRIC: Normal psychiatric evaluation. Limitations: no limitations Course Vital Signs 02/01/19 02/01/19 14:41 16:44 Temperature 97.9 F 98.3 F Pulse Rate 89 62 Respiratory 18 18 Rate Blood Pressure 117/77 124/64 O2 Sat by Pulse 100 99 Oximetry Medical Decision Making - Medical Decision Making Thoracic x-ray showed no acute abnormality. Lumbar sickle spine shows a L1 slightly displaced endplate fracture. Patient remains without any neurologic deficit Disposition Clinical Impression: Compression fracture of L1 vertebra Disposition: HOME SELF-CARE Condition: Good Instructions (If sedation given, give patient instructions): Vertebral Compression Fracture (ED) Prescriptions: Ketorolac [Toradol] 10 mg PO Q6HR #15 tab Is patient prescribed a controlled substance at d/c from ED?: No Referrals: None,Stated [Primary Care Provider] - 1-2 days Time of Disposition: 16:52
--- NOTE | 2019-02-01 15:47 | XR ---
EXAMINATION TYPE: XR thoracic spine 4 views, XR lumbosacral spine min 5 views DATE OF EXAM: 02/01/2019 COMPARISON: NONE HISTORY: 28-year-old female with back pain after being thrown from a horse FINDINGS: Thoracic spine: 12 rib-bearing thoracic vertebral bodies. All pedicles are visualized. Vertebral body heights are pre served and alignment is maintained. There is irregularity of the superior endplate of L1 with overall preserved vertebral body height. Lumbar spine: No other vertebral compression deformity. Alignment is maintained. IMPRESSION: 1. Thoracic spine: No vertebral compression collapse or malalignment. 2. Lumbar spine: Findings suspicious for a nondepressed to minimally depressed superior endplate frac ture of L1.
[2019-02-01 16:47] VITALS: BP 124/64; PULSE 62; TEMP 98.3
== END 2019-02-01 17:02 | disposition home or self-care (01) ==
LOC: EC 14:36
DX: S32.019A Unspecified fracture of first lumbar vertebra, initial encounter for closed fracture (principal); F41.0 Panic disorder [episodic paroxysmal anxiety]; F32.9 Major depressive disorder, single episode, unspecified; F17.200 Nicotine dependence, unspecified, uncomplicated; Z79.899 Other long term (current) drug therapy; V80.010A Animal-rider injured by fall from or being thrown from horse in noncollision accident, initial encounter
CPT/HCPCS: 72070; 72110; 99283; 96372; J1885

== ENCOUNTER 2021-02-09 22:10 | Inpatient (IN) | payer BC ==
[2021-02-09] MEDS ORDERED: CARBOPROST TROMETHAMINE 250 MCG/ML 1 ML AMP IM PRN (22:39)
[2021-02-09] MEDS ORDERED: LIDOCAINE 0.5% (PF) 5 MG/ML (50 ML SDV) SQ PRN (22:39)
[2021-02-09] MEDS ORDERED: TERBUTALINE 1 MG/ML VIAL SQ PRN (22:39)
[2021-02-09] MEDS ORDERED: METHYLERGONOVINE 0.2 MG/ML 1 ML AMP IM PRN (22:39)
[2021-02-09] MEDS ORDERED: OXYTOCIN 10 UNIT/ML 1 ML VIAL IM PRN (22:39)
[2021-02-09] MEDS ORDERED: BUTORPHANOL 1 MG/ML 1 ML VIAL IV PRN (22:41)
[2021-02-09] MEDS ORDERED: LACTATED RINGERS 1,000 ML IV SCH (22:45)
[2021-02-09 23:17] LABS: Basophils % (A) 0 %; Eosinophils # (A) 0.1 k/uL (0-0.7); Eosinophils % (A) 1 %; HCT 35.9 % (34.0-46.0); HGB 12.1 gm/dL (11.4-16.0); Lymphocytes # (A) 2.9 k/uL (1.0-4.8); Lymphocytes % (A) 20 %; MCH 24.9 pg (25.0-35.0); MCHC 33.9 g/dL (31.0-37.0); MCV 73.5 fL (80.0-100.0); Microcytosis Slight; Monocytes # (A) 0.7 k/uL (0-1.0); Monocytes % (A) 5 %; Neutrophils # (A) 10.6 k/uL (1.3-7.7); Neutrophils % (A) 73 %; Platelet Count 242 k/uL (150-450); RBC 4.88 m/uL (3.80-5.40); RDW 15.6 % (11.5-15.5); WBC 14.6 k/uL (3.8-10.6)
[2021-02-10] MEDS ORDERED: diphenhydrAMINE 50 MG/ML 1 ML VIAL IVP PRN ×2 (01:21)
[2021-02-10] MEDS ORDERED: SIMETHICONE 80 MG CHEWABLE PO PRN (01:21)
[2021-02-10] MEDS ORDERED: HYDROCORTISONE 2.5% RECTAL CREAM 30 GM TUBE RECTAL PRN (01:21)
[2021-02-10] MEDS ORDERED: diphenhydrAMINE 25 MG CAP PO PRN (01:21)
[2021-02-10] MEDS ORDERED: diphenhydrAMINE 50 MG CAP PO PRN (01:21)
[2021-02-10] MEDS ORDERED: BENZOCAINE/MENTHOL SPRAY 1 GM/SPRAY AEROSOL TOPICAL PRN (01:21)
[2021-02-10] MEDS ORDERED: LANOLIN CREAM 5 GM TUBE TOPICAL PRN (01:21)
[2021-02-10] MEDS ORDERED: ZOLPIDEM 5 MG TAB PO PRN (01:21)
[2021-02-10] MEDS ORDERED: ACETAMINOPHEN TAB 325 MG TAB PO PRN (01:21)
--- NOTE | 2021-02-10 01:25 | P.HPOB ---
History of Present Illness H&P Date: 02/09/21 Chief Complaint: IUP @ 39 1/7 weeks, labor This is a 30-year-old at 39 1/7 weeks, EDC of 02/15. Patient has a significant history for anxiety and depression. Patient has a history of periurethral diverticulum for which she has been on antibiotics and Dr. Jade roberson excision after delivery. She presents to labor and delivery with complaints of regular painful contractions. She denies loss of fluid, vaginal bleeding. She has been receiving routine care which has been essentially uncomplicated. She did had a a positive COVID-19 test in her second trimester. On bloodwork this patient has a blood type of O+, rubella status immune, RPR is nonreactive, hep B surface antigen negative, HIV is negative. Group beta strep culture is negative on 01/17. Review of Systems Constitutional: Denies fatigue, Denies fever Ears, nose, mouth and throat: Denies headache Cardiovascular: Reports leg edema Respiratory: Denies dyspnea Gastrointestinal: Denies constipation, Denies diarrhea, Denies nausea, Denies vomiting Genitourinary: Reports Past Medical History Past Medical History: No Reported History History of Any Multi-Drug Resistant Organisms: None Reported Past Surgical History: No Surgical Hx Reported Past Anesthesia/Blood Transfusion Reactions: No Reported Reaction Smoking Status: Current every day smoker - Past Family History Mother Family Medical History: No Reported History Medications and Allergies Home Medications Medication Instructions Recorded Confirmed Type Desvenlafaxine [Desvenlafaxine ER] 50 mg PO DAILY 12/19/17 02/09/21 History Gabapentin [Neurontin] 200 mg PO HS 12/19/17 02/09/21 History Aspirin [Children's Aspirin] 81 mg PO DAILY 02/09/21 02/09/21 History Ferrous Sulfate [Iron] 325 mg PO BID 02/09/21 02/09/21 History Pnv No.95/Ferrous Fum/Folic AC 1 each PO DAILY 02/09/21 02/09/21 History [ Multivitamin Tablet] Allergies Allergy/AdvReac Type Severity Reaction Status Date / Time No Known Allergies Allergy Verified 02/09/21 22:25 Exam Osteopathic Statement: *. No significant issues noted on an osteopathic structural exam other than those noted in the History and Physical/Consult. Vital Signs Temp Pulse Resp BP 02/09/21 22:57 97.5 F L 106 H 18 132/68 Intake and Output 02/09/21 02/09/21 02/10/21 14:59 22:59 06:59 Other: Weight 99.79 kg Targeted physical exam is performed in this date and senior oracle database administrator a well-nourished well-developed female in no acute distress, reading is noted to nonlabo red, heart has a regular rate and rhythm, abdomen is gravid. On cervical exam per RN she is 6/100/-2 station with a bulging bag of water. Category 1 heart tones are appreciated and she is alicja every 2-4 minutes. Assessment and Plan (1) Term Current Visit: Yes Status: Acute Code(s): Z34.90 - ENCNTR FOR SUPRVSN OF NORMAL , UNSP, UNSP TRIMESTER SNOMED Code(s): 48926192 (2) Spontaneous onset of labor Current Visit: No Status: Acute Code(s): WSH7219 - SNOMED Code(s): 30962279 Plan: 30-year-old at 39 and one sevenths weeks presents in active labor. Patient is requesting Stadol. She is hoping to not have an epidural placed. Amniotomy when appropriate. Into states spontaneous vaginal delivery.
--- NOTE | 2021-02-10 01:25 | P.PROBDLV ---
Vaginal Delivery Note - . Vaginal Delivery Note: This is a 30-year-old 6 para 30-3 at 39 and one sevenths weeks that presented to labor and delivery with complaints of regular painful contractions since 2129. Patient denied loss of fluid prior to admission. Patient was admitted to labor and delivery amniotomy was performed and thick meconium fluid was appreciated. Patient progressed to complete began pushing and had a normal spontaneous vaginal delivery of a viable female infant at 107, weight of 6 aylin nds 12.8 ounces, Apgars of 9 and 9 at one and 5 minutes respect daily. After two-minute delay the umbilical cord was doubly clamped and cut and the was handed to the maternal abdomen. The placenta was then delivered spontaneously intact with a three-vessel cord being noted. The uterus is noted to be firm and below the umbilicus. No vaginal lacerations were appreciated. Estimated blood loss 100 mL. Patient and infant tolerated delivery well and are resting comfortably.
[2021-02-10] MEDS ORDERED: OXYTOCIN 30 UNITS/500 ML NS 30 UNIT in SALINE 1 500ML.BAG IV SCH (01:30)
[2021-02-10] MEDS: IBUPROFEN 600 MG TAB PO PRN ×3 (02:09→16:57)
[2021-02-10] MEDS ORDERED: DESVENLAFAXINE SUCCINATE 50 MG TAB.ER.24H PO SCH (09:00)
[2021-02-10] MEDS ORDERED: PRENATAL VIT-IRON-FOLIC ACID 1 EACH CAP PO SCH (09:00)
[2021-02-10] MEDS: SENNOSIDES-DOCUSATE SODIUM 1 EACH TAB PO SCH ×2 (09:12→20:08)
--- NOTE | 2021-02-10 11:35 | P.DS ---
Providers Date of admission: 02/09/21 22:43 Expected date of discharge: 02/10/21 Attending physician: Kate Mcdaniel Primary care physician: Stated None - Discharge Diagnosis(es) (1) Term Current Visit: Yes Status: Acute (2) Spontaneous onset of labor Current Visit: No Status: Acute (3) Normal spontaneous vaginal delivery Current Visit: No Status: Acute Hospital Course: This is a 30-year-old 023 that presented to labor and delivery at 39 and one sevenths weeks with complaints of regular painful contractions. Patient states contractions started a couple hours prior to admission. Patient was noted to be 6 cm on initial exam. Patient was admitted to labor and delivery offered epidural for which she declined. Amniotomy was performed and meconium- stained fluid was appreciated. Patient progressed to complete had a normal spontaneous vaginal delivery of a viable female at 107, weight of 6 pounds 12.8 ounces, no vaginal lacerations were appreciated. Patient has done well . On this day #0 she is ambulating and voiding without difficulty. She is tolerating a regular diet without nausea or vomiting. She would like discharge home at 24 hours. Patient Condition at Discharge: Good Plan - Discharge Summary New Discharge Prescriptions: No Action Gabapentin [Neurontin] 200 mg PO HS Desvenlafaxine [Desvenlafaxine ER] 50 mg PO DAILY Pnv No.95/Ferrous Fum/Folic AC [ Multivitamin Tablet] 1 each PO DAILY Aspirin [Children's Aspirin] 81 mg PO DAILY Ferrous Sulfate [Iron] 325 mg PO BID Discharge Medication List Desvenlafaxine [Desvenlafaxine ER] 50 mg PO DAILY 12/19/17 [History] Gabapentin [Neurontin] 200 mg PO HS 12/19/17 [History] Aspirin [Children's Aspirin] 81 mg PO DAILY 02/09/21 [History] Ferrous Sulfate [Iron] 325 mg PO BID 02/09/21 [History] Pnv No.95/Ferrous Fum/Folic AC [ Multivitamin Tablet] 1 each PO DAILY 02/09/21 [History] Follow up Appointment(s)/Referral(s): Dolores Latham DO [Doctor of Osteopathic Medicine] - 2 Weeks Patient Instructions/Handouts: Vaginal Delivery (GEN), Vaginal Delivery (DC) Discharge Disposition: HOME SELF-CARE
[2021-02-10] MEDS ORDERED: GABAPENTIN 100 MG CAP PO SCH (21:00)
[2021-02-10 21:42] VITALS: RESP 15
[2021-02-11] MEDS: IBUPROFEN 600 MG TAB PO PRN (00:51)
[2021-02-11 02:31] VITALS: BP 129/71; PULSE 75; TEMP 97.7
--- NOTE | 2021-02-12 09:49 | P.MSEPDOC ---
Presenting Problems - Arrival Data Date of Arrival on Unit: 02/09/21 Time of Arrival on Unit: 22:44 Mode of Transport: Ambulatory - Complaint OB-Reason for Admission/Chief Complaint: Possible Onset of Labor Comment: pt presents to triage for contractions that started getting more intense at 2130 Medical History - Information : 6 Para: 3 Term: 3 : 0 Abortions: Spontaneous or Elective: 2 Number of Living Children: 3 - Gestational Age Gestational Age by TARA (wks/days): 39 Weeks and 2 Days - History Complications: Smoker Review of Systems - Review of Systems Constitutional: No problems Breast: No problems ENT: No problems Cardiovascular: No problems Respiratory: No problems Gastrointestinal: No problems Genitourinary: No problems Musculoskeletal: No problems Neurological: No problems Skin: No problems Vital Signs - Temperature Temperature: 97.7 F Temperature Source: Oral - Pulse Right Brachial Pulse Rate: 75 Pulse Assessment Method: Pulse Oximetry - Respirations Respiratory Rate: 15 Oxygen Delivery Method: Room Air O2 Sat by Pulse Oximetry: 97 - Blood Pressure Right Arm Blood Pressure: 129/71 Blood Pressure Mean: 90 Blood Pressure Source: Automatic Cuff Medical Screen Scoring - Cervical Exam Dilation (cm): 6 Effacement (%): 100 Station: -2 Membranes: Intact - Uterine Contractions Frequency From (mins): 3 Frequency To (mins): 4 Duration From (seconds): 40 Duration To (seconds): 60 Intensity: Strong Resting: Soft to palpation - Assessment - Baby A Baseline FHR: 130 Heart Rate - NICHD Category: Category I (Normal) Physician Notification - Physician Notified Physician Notified Date: 02/09/21 Physician Notified Time: 22:38 Physician: Dolores Latham New Order Received: Yes - Notification Comment Comment: admit for labor Maternal Triage Index - Maternal Triage Index Presenting for scheduled procedure w/no complaint: No - Stat/Priority 1 Stat Priority 1: No - Urgent/Priority 2 Urgent Priority 2: Yes Provider Notified: Dolores Latham Provider Notified Time: 22:45 Criteria Met for Priority 2: pt 39 1/7 , pt 6 cm dilated Disposition - Disposition OB Disposition: Admit, LDRP Suite Discharge Date: 02/11/21 Discharge Time: 07:30 I agree with the RN Medical Screening Exam: Yes Case reviewed; plan agreed upon as documented in EMR&OBIX.: Yes Comments: Patient was seen and managed by Dr. Latham Diagnosis: LOUSE-BORNE TYPHUS
== END 2021-02-11 07:30 | disposition home or self-care (01) | DRG 807 ==
LOC: FBPOP 22:10 → 4FBP 22:43
PROVIDERS: ADMIT Obstetrics & Gynecology Obstetrics; ATTEND Obstetrics & Gynecology
PROC: 10E0XZZ Delivery of Products of Conception, External Approach (ICD-10-PCS; principal; 2021-02-10)
DX: O77.0 Labor and delivery complicated by meconium in amniotic fluid (principal); Z37.0 Single live birth; O99.334 Smoking (tobacco) complicating childbirth; F17.200 Nicotine dependence, unspecified, uncomplicated; Z79.82 Long term (current) use of aspirin; Z3A.39 39 weeks gestation of pregnancy; Z86.16 Personal history of COVID-19
CPT/HCPCS: 59025; 85025; 86850; 86900; 86901; 88307; 99213

== ENCOUNTER → 2021-05-16 | Outpatient (CLI) | payer BC ==
[2021-05-16 12:05] LABS: African American GFR (CKD) >90 (>60 ml/min/1.73 sqM); Anion Gap 5 mmol/L; Blood Urea Nitrogen 11 mg/dL (7-17); Calcium 9.3 mg/dL (8.4-10.2); Carbon Dioxide 25 mmol/L (22-30); Chloride 106 mmol/L (98-107); Glucose 82 mg/dL (74-99); Non-African American GFR(CKD) >90 (>60 ml/min/1.73 sqM); Potassium 4.7 mmol/L (3.5-5.1); Sodium 136 mmol/L (137-145)
[2021-05-16 12:12] LABS: Basophils # (A) 0.1 k/uL (0-0.2); Basophils % (A) 1 %; Eosinophils # (A) 0.2 k/uL (0-0.7); Eosinophils % (A) 2 %; HCT 37.2 % (34.0-46.0); HGB 12.2 gm/dL (11.4-16.0); Lymphocytes % (A) 36 %; MCH 23.7 pg (25.0-35.0); MCHC 32.9 g/dL (31.0-37.0); Mean Platelet Volume 7.5; Microcytosis Slight; Monocytes # (A) 0.4 k/uL (0-1.0); Monocytes % (A) 5 %; Neutrophils # (A) 4.5 k/uL (1.3-7.7); Neutrophils % (A) 55 %; Platelet Count 266 k/uL (150-450); RBC 5.16 m/uL (3.80-5.40); RDW 13.4 % (11.5-15.5); WBC 8.2 k/uL (3.8-10.6)
== END | disposition home or self-care (01) ==
LOC: LABPAT 10:53
PROVIDERS: ATTEND Urology
DX: Z01.812 Encounter for preprocedural laboratory examination (principal); N36.1 Urethral diverticulum
CPT/HCPCS: 80048; 85025

== ENCOUNTER 2021-05-24 06:36 | Day surgery (SDC) | payer BC ==
--- NOTE | 2021-05-21 06:55 | P.GSHP ---
History of Present Illness H&P Date: 05/21/21 Chief Complaint: Urethral pain The patient is a 30-year-old white female who palpated a cyst over the distal urethra early this year. It measured approximately 8 mm in size and was suspicious for a urethral diverticulum. She was experiencing urethral pain as a result of this. However, she was and no treatment was recommended. She delivered on 02/10/2021. Her pain has increased in the past month. Examination reveals a 1 cm mass over the distal urethra, which is fluctuant. It is possible to express purulent fluid through the urethral meatus. - Constitutional Constitutional: Denies chills, Denies fever - Genitourinary (Female) Genitourinary: Denies dysuria, Denies hematuria Past Medical History Past Medical History: No Reported History History of Any Multi-Drug Resistant Organisms: None Reported Past Surgical History: No Surgical Hx Reported Past Anesthesia/Blood Transfusion Reactions: No Reported Reaction Smoking Status: Current every day smoker - Past Family History Mother Family Medical History: No Reported History Medications and Allergies Home Medications Medication Instructions Recorded Confirmed Type Desvenlafaxine [Desvenlafaxine ER] 50 mg PO DAILY 12/19/17 02/09/21 History Gabapentin [Neurontin] 200 mg PO HS 12/19/17 02/09/21 History Aspirin [Children's Aspirin] 81 mg PO DAILY 02/09/21 02/09/21 History Ferrous Sulfate [Iron] 325 mg PO BID 02/09/21 02/09/21 History Pnv No.95/Ferrous Fum/Folic AC 1 each PO DAILY 02/09/21 02/09/21 History [ Multivitamin Tablet] Allergies Allergy/AdvReac Type Severity Reaction Status Date / Time No Known Allergies Allergy Verified 02/09/21 22:25 Surgical - Exam - General well developed, well nourished, no distress - Neck no masses, trachea midline - Respiratory normal respiratory effort, clear to auscultation - Cardiovascular Rhythm: regular Abnormal Heart Sounds: no systolic murmur, no diastolic murmur, no rub, no S3 Gallop, no S4 Gallop, no click, no other - Abdomen Abdomen: soft, non tender, no guarding, no rigid, no rebound - Genitourinary Normal vulva, normal urethral meatus. A 1 cm masses palpable over the distal urethra. This is fluctuant, and pressure applied to it results in purulent drainage per urethra. - Psychiatric oriented to time, oriented to person, oriented to place, speech is normal, memory intact Assessment and Plan (1) Urethral diverticulum Status: Acute Code(s): N36.1 - URETHRAL DIVERTICULUM SNOMED Code(s): 57477089 Plan: I had a lengthy discussion with the patient regarding her urethral diverticulum. She is symptomatic and desires treatment. I I recommended she undergo a urethral diverticulectomy, and the procedure has been reviewed in detail. She is aware of potential risks, which include anesthesia, bleeding, infection, recurrent diverticulum, and urethral stricture. She is also aware of the risk of urinary incontinence, though this is not anticipated given the distal location of the diverticulum.
[2021-05-22 13:34] VITALS: BMI 36.6
[~2021-05-24 06:36] MED LIST: CLINDAMYCIN 900 MG in DEXTROSE 5% IN WATER 50 ML IVPB PRN
[2021-05-24] MEDS ORDERED: MIDAZOLAM 2 MG/2 ML VIAL IV PRN (06:43)
[2021-05-24] MEDS ORDERED: LACTATED RINGERS 1,000 ML IV SCH (06:43)
[2021-05-24] MEDS ORDERED: ONDANSETRON 4 MG/2 ML VIAL IVP ONE (06:43)
[2021-05-24] MEDS ORDERED: SCOPOLAMINE 1.5MG/72HR PATCH TRANSDERM ONE (06:43)
[2021-05-24] MEDS ORDERED: DEXAMETHASONE SOD PHOSPHATE 4 MG/ML 1 ML VIAL IV ONE (06:43)
[2021-05-24] MEDS ORDERED: LIDOCAINE 1% (10MG/ML) FOR IV START INTRADERMA PRN (06:43)
[2021-05-24] MEDS ORDERED: HYDROmorphone 0.5 MG/0.5 ML SYRINGE IVP PRN (07:00)
[2021-05-24] MEDS ORDERED: ONDANSETRON 4 MG/2 ML VIAL IVP PRN (07:00)
[2021-05-24 07:02] VITALS: TEMP 97.8
[2021-05-24] MEDS ORDERED: SUCCINYLCHOLINE CHLORIDE 100 MG/5 ML SYR IV ONE (07:37)
[2021-05-24] MEDS ORDERED: KETOROLAC 15 MG/ML 1 ML VIAL ONE (07:37)
[2021-05-24] MEDS ORDERED: LIDOCAINE 1% INJ 10MG/ML (20 ML MDV) ONE (07:37)
[2021-05-24] MEDS ORDERED: PROPOFOL 10 MG/ML 20 ML VIAL IV ONE (07:37)
[2021-05-24] MEDS ORDERED: GLYCOPYRROLATE 0.2 MG/ML 2 ML VIAL ONE (07:37)
[2021-05-24] MEDS ORDERED: MIDAZOLAM 2 MG/2 ML VIAL ONE (07:37)
[2021-05-24] MEDS ORDERED: .fentaNYL (PF) 50 MCG/ML 2 ML AMP ONE (07:37)
[2021-05-24] MEDS ORDERED: NEOSTIGMINE 1 MG/ML 10 ML VIAL ONE (07:37)
[2021-05-24] MEDS ORDERED: SELENIUM 40 MCG/ML IV ONE (07:37)
[2021-05-24] MEDS ORDERED: ROCURONIUM 10 MG/ML (5 ML VIAL) IV ONE (07:37)
[2021-05-24 10:18] VITALS: RESP 16
--- NOTE | 2021-05-24 11:13 | P.OP ---
Date of Procedure: 05/24/21 Preoperative Diagnosis: Urethral Diverticulum Postoperative Diagnosis: Same Procedure(s) Performed: Urethral Diverticulectomy Anesthesia: DAISY Surgeon: Jules Hansen Estimated Blood Loss (ml): 30 IV fluids (ml): 600 Pathology: other (Urethral diverticulum) Condition: stable Disposition: PACU Indications for Procedure: The patient is a 30-year-old white female who palpated a cyst over the distal urethra early this year. It measured approximately 8 mm in size and was suspicious for a urethral diverticulum. She was experiencing urethral pain as a result of this. However, she was and no treatment was recommended. She delivered on 02/10/2021. Her pain has increased in the past month. Examination reveals a 1 cm mass over the distal urethra, which is fluctuant. It is possible to express purulent fluid through the urethral meatus. Operative Findings: Urethral diverticulum over distal urethra. Description of Procedure: The patient was taken to the operating room and placed in the dorsal lithotomy position, with her legs supported in Dwight stirrups. The perineum, lower abdomen, and vagina were prepped and draped sterilely. A 16-Azeri Magaña catheter was placed. Epinephrine was injected submucosally within the anterior vaginal wall, over the urethra and surrounding the urethral diverticulum, which arose from the distal urethra. The scalpel was then used to make an inverted U- shaped incision, with the apex of the incision just proximal to the urethral meatus. Metzenbaum scissors were used to dissect within the submucosal plane, elevating a vaginal flap and exposing the urethral diverticulum. Dissection continued circumferentially around the diverticulum, which measured 8-10 mm in diameter. Ultimately, the decision was made to open the diverticulum to better visualize its boundaries. A dimple was seen at the base of the diverticulum, though a true connection to the urethra was not seen. The diverticulum extended to the right of the midline, and it was ultimately excised. The urethra was then inspected, but a urethral hole was not identified. A right angle was passed into the urethral meatus, and there appeared to possibly be a depression just to the right of the midline, and a possible small opening was seen in that area. Cystoureteroscopy was performed, but did not reveal any abnormalities. Specifically, an opening into the urethral diverticulum was not seen. The bladder appeared normal. The ureteral orifices appeared normal. No tumors or foreign bodies were seen. The cystoscope was removed, and the Magaña catheter was replaced into the bladder. Using 5-0 Vicryl suture, a layer of periurethral tissue was sutured over the possible small urethral opening. An additional flap of periurethral tissue was then sutured over that, thus providing 2 layers of periurethral tissue over the possible urethral opening. The Bovie electrocautery was used to cauterize any areas of bleeding, attaining excellent hemostasis. The vaginal incision was closed using 2-0 Vicryl suture in a running fashion. All sponge and needle counts were correct. The patient tolerated the procedure well was taken to the recovery room in stable condition.
[2021-05-24 11:19] VITALS: BP 109/75; PULSE 74
== END 2021-05-24 11:35 | disposition home or self-care (01) ==
LOC: OR 06:36
PROVIDERS: ATTEND Urology
DX: N36.1 Urethral diverticulum (principal); N34.0 Urethral abscess; F17.200 Nicotine dependence, unspecified, uncomplicated; Z79.82 Long term (current) use of aspirin; Z79.899 Other long term (current) drug therapy; F41.9 Anxiety disorder, unspecified; F43.10 Post-traumatic stress disorder, unspecified
CPT/HCPCS: 81025; 88305; 53230; J2250; J0171; J1100; J2405; J2001; J3010; J1885; J0330; J2704

== ENCOUNTER 2021-05-25 22:45 | Emergency (ER) | payer BC ==
[2021-05-25 23:00] VITALS: BP 142/70; PULSE 66; RESP 20; TEMP 98.1
--- NOTE | 2021-05-25 23:25 | ED ---
Female Urogenital HPI - General Chief complaint: Urogenital Stated complaint: Catheter issue Time Seen by Provider: 05/25/21 23:10 Source: patient Mode of arrival: ambulatory Limitations: no limitations - History of Present Illness Initial comments: This patient is 30-year-old woman who had repair of a urethral diverticulum yesterday with Dr. Hnasen. She states that since this morning she has been passing urine around the Magaña catheter which had been left in after surgery. She states that she had been in contact with her doctor a number of times today and he ultimately advised her to come here for evaluation. Patient denies fever or chills. No hematuria. No pain. MD Complaint: other Onset/Timin -: hour(s) Location: perineum Radiation: non-radiating Severity scale (1-10): 0 Improves with: none Worsens with: urination Patient : No - Related Data Home Medications Medication Instructions Recorded Confirmed Desvenlafaxine [Desvenlafaxine ER] 50 mg PO DAILY 12/19/17 05/24/21 Gabapentin [Neurontin] 200 mg PO HS 12/19/17 05/24/21 Previous Rx's Medication Instructions Recorded Ketorolac [Toradol] 10 mg PO Q6HR PRN #12 tab 05/24/21 Allergies Allergy/AdvReac Type Severity Reaction Status Date / Time No Known Allergies Allergy Verified 05/25/21 22:56 Review of Systems ROS Statement: Those systems with pertinent positive or pertinent negative responses have been documented in the HPI. ROS Other: All systems not noted in ROS Statement are negative. Constitutional: Denies: fever, chills Respiratory: Denies: cough, dyspnea Cardiovascular: Denies: palpitations, edema Gastrointestinal: Denies: abdominal pain, nausea, vomiting Genitourinary: Reports: as per HPI, other. Denies: dysuria, frequency, hematuria Skin: Denies: rash Past Medical History Past Medical History: No Reported History History of Any Multi-Drug Resistant Organisms: None Reported Past Surgical History: No Surgical Hx Reported Additional Past Surgical History / Comment(s): cyst next to urethra removed. Past Anesthesia/Blood Transfusion Reactions: No Reported Reaction Past Psychological History: Anxiety, Depression, Panic Disorder, PTSD Smoking Status: Vaper Past Alcohol Use History: None Reported Past Drug Use History: None Reported - Past Family History Mother Family Medical History: No Reported History General Exam Limitations: no limitations General appearance: alert, in no apparent distress Head exam: Present: atraumatic, normocephalic Respiratory exam: Present: normal lung sounds bilaterally. Absent: respiratory distress, wheezes, rales, rhonchi, stridor Cardiovascular Exam: Present: regular rate, normal rhythm, normal heart sounds. Absent: systolic murmur, diastolic murmur, rubs, gallop GI/Abdominal exam: Present: soft. Absent: distended, tenderness, guarding, rebound, rigid Skin exam: Present: warm, dry, intact, normal color. Absent: rash Course Vital Signs 05/25/21 22:56 Temperature 98.1 F Pulse Rate 66 Respiratory 20 Rate Blood Pressure 142/70 O2 Sat by Pulse 97 Oximetry Disposition Clinical Impression: Malfunction of Magaña catheter Disposition: HOME SELF-CARE Condition: Good Instructions (If sedation given, give patient instructions): Magaña Catheter Placement and Care (ED) Is patient prescribed a controlled substance at d/c from ED?: No Referrals: None,Stated [Primary Care Provider] - 1-2 days Jules Hansen MD [STAFF PHYSICIAN] - 1-2 days
== END 2021-05-26 00:30 | disposition left against medical advice (07) ==
LOC: EC 22:45
DX: T83.091A Other mechanical complication of indwelling urethral catheter, initial encounter (principal); F41.9 Anxiety disorder, unspecified; F32.A Depression, unspecified; F43.12 Post-traumatic stress disorder, chronic; F17.290 Nicotine dependence, other tobacco product, uncomplicated; X58.XXXA Exposure to other specified factors, initial encounter
CPT/HCPCS: 99283

== ENCOUNTER 2021-05-26 09:56 | Emergency (ER) | payer BC ==
[2021-05-26 10:05] VITALS: BP 135/80; PULSE 64; RESP 18; TEMP 98.1
--- NOTE | 2021-05-26 10:44 | ED ---
General Adult HPI - General Chief complaint: Abdominal Pain Stated complaint: here for catheter Time Seen by Provider: 05/26/21 10:24 Source: patient Mode of arrival: ambulatory Limitations: no limitations - History of Present Illness Initial comments: 30-year-old female presents to the emergency room for a chief complaint of Magaña catheter insertion. Patient had a repair of a urethral diverticulum [address] Hansen[address] Patient apparently had her Magaña catheter removed in the emergency room the day after this and did not want another one placed. Patient was sent in by Dr. Hansen for placement of Magaña catheter. Patient has no other complaints at this time including shortness of breath, chest pain, abdominal pain, nausea or vomiting, headache, or visual changes. - Related Data Home Medications Medication Instructions Recorded Confirmed Desvenlafaxine [Desvenlafaxine ER] 50 mg PO DAILY 12/19/17 05/25/21 Gabapentin [Neurontin] 300 mg PO HS 12/19/17 05/25/21 Ibuprofen [Advil] 400 mg PO ONCE PRN 05/25/21 05/25/21 Previous Rx's Medication Instructions Recorded Ketorolac [Toradol] 10 mg PO Q6HR PRN #12 tab 05/24/21 Allergies Allergy/AdvReac Type Severity Reaction Status Date / Time No Known Allergies Allergy Verified 05/26/21 10:04 Review of Systems ROS Statement: Those systems with pertinent positive or pertinent negative responses have been documented in the HPI. ROS Other: All systems not noted in ROS Statement are negative. Past Medical History Past Medical History: No Reported History History of Any Multi-Drug Resistant Organisms: None Reported Past Surgical History: No Surgical Hx Reported Additional Past Surgical History / Comment(s): cyst next to urethra removed. Past Anesthesia/Blood Transfusion Reactions: No Reported Reaction Past Psychological History: Anxiety, Depression, Panic Disorder, PTSD Smoking Status: Vaper Past Alcohol Use History: None Reported Past Drug Use History: None Reported - Past Family History Mother Family Medical History: No Reported History General Exam Limitations: no limitations General appearance: alert, in no apparent distress Head exam: Present: atraumatic Eye exam: Present: normal appearance, PERRL, EOMI. Absent: scleral icterus, conjunctival injection ENT exam: Present: normal exam, mucous membranes moist Neck exam: Present: normal inspection, full ROM. Absent: tenderness Respiratory exam: Present: normal lung sounds bilaterally. Absent: respiratory distress, wheezes Cardiovascular Exam: Present: regular rate, normal rhythm, normal heart sounds GI/Abdominal exam: Present: soft, normal bowel sounds. Absent: distended, tenderness Course Vital Signs 05/26/21 10:00 Temperature 98.1 F Pulse Rate 64 Respiratory 18 Rate Blood Pressure 135/80 O2 Sat by Pulse 99 Oximetry Medical Decision Making - Medical Decision Making Dr. Hansen came to the ER and personally placed patient's Magaña catheter. States that patient can be discharged home and will follow-up with him. She can return here for any issues. Disposition Clinical Impression: Magaña catheter problem Disposition: HOME SELF-CARE Condition: Good Instructions (If sedation given, give patient instructions): Magaña Catheter Placement and Care (ED) Additional Instructions: Please follow-up with your doctor in one to 2 days. Return to the emergency room for any worsening symptoms. Is patient prescribed a controlled substance at d/c from ED?: No Referrals: Jules Hansen MD [STAFF PHYSICIAN] - 1-2 days Time of Disposition: 10:43
--- NOTE | 2021-05-26 11:20 | P.PN ---
Progress Note - Text Progress Note Date: 05/26/21 The patient underwent an uncomplicated urethral diverticulectomy in 05/24/2021. She was discharged home postoperatively. She contacted me yesterday evening, stating that her Magaña catheter was not draining and she was voiding around the catheter. I advised her to go to the emergency room to have the Magaña catheter changed. I was contacted by the ER physician, Dr. Villagomez, and explained to him that she did not require a formal ER evaluation but rather to have the catheter changed. I called the patient this morning to see show she was doing, and she informed me that she did not have a catheter and she was voiding spontaneously (without difficulty). I advised her that a Magaña catheter was an essential part of the postoperative treatment plan. She returned to the ER, at which time I examined her. The vaginal incision is intact. A Magaña catheter was easily passed into the bladder, with return of less than 100 mL of clear yellow urine. The catheter was connected to a urinary drainage bag, and she was also given a leg bag with instructions on how to use both. It is my intention that the catheter remain in place until 06/04/2021.
== END 2021-05-26 11:00 | disposition home or self-care (01) ==
LOC: EC 09:56
DX: T83.091A Other mechanical complication of indwelling urethral catheter, initial encounter (principal); F32.A Depression, unspecified; F43.10 Post-traumatic stress disorder, unspecified; F41.0 Panic disorder [episodic paroxysmal anxiety]; F17.290 Nicotine dependence, other tobacco product, uncomplicated
CPT/HCPCS: 99283

== ENCOUNTER 2022-01-21 12:53 | Observation (INO) | payer BC ==
[2022-01-21 14:07] LABS: Basophils # (A) 0.1 k/uL (0-0.2); Basophils % (A) 1 %; Eosinophils # (A) 0.1 k/uL (0-0.7); Eosinophils % (A) 1 %; HCT 41.2 % (34.0-46.0); HGB 12.9 gm/dL (11.4-16.0); Lymphocytes # (A) 3.4 k/uL (1.0-4.8); Lymphocytes % (A) 39 %; MCH 22.7 pg (25.0-35.0); MCHC 31.3 g/dL (31.0-37.0); MCV 72.5 fL (80.0-100.0); Mean Platelet Volume 7.9; Microcytosis Slight; Monocytes # (A) 0.4 k/uL (0-1.0); Monocytes % (A) 4 %; Neutrophils # (A) 4.7 k/uL (1.3-7.7); Neutrophils % (A) 54 %; Platelet Count 291 k/uL (150-450); RBC 5.68 m/uL (3.80-5.40); RDW 13.7 % (11.5-15.5); WBC 8.8 k/uL (3.8-10.6)
[2022-01-21 14:13] LABS: Appearance,Urine Clear (Clear); Bilirubin,Urine Negative (Negative); Blood,Urine Negative (Negative); Color,Urine Light Yellow; Glucose,Urine (UA) Negative (Negative); Ketones,Urine Negative (Negative); Leukocyte Esterase,Urine Negative (Negative); Nitrite,Urine Negative (Negative); PH, Urine 6.5 (5.0-8.0); Protein,Urine Negative (Negative); Urobilinogen,Urine <2.0 mg/dL (<2.0)
[2022-01-21 14:21] LABS: ALT 16 U/L (4-34); AST 24 U/L (14-36); African American GFR (CKD) >90 (>60 ml/min/1.73 sqM); Albumin 4.6 g/dL (3.5-5.0); Alkaline Phosphatase 84 U/L (38-126); Anion Gap 9 mmol/L; Blood Urea Nitrogen 13 mg/dL (7-17); C Reactive Protein <0.5 mg/dL (<1.0); Calcium 9.4 mg/dL (8.4-10.2); Carbon Dioxide 24 mmol/L (22-30); Chloride 106 mmol/L (98-107); Glucose 81 mg/dL (74-99); Non-African American GFR(CKD) >90 (>60 ml/min/1.73 sqM); Potassium 3.9 mmol/L (3.5-5.1); Sodium 139 mmol/L (137-145); Total Bilirubin 0.5 mg/dL (0.2-1.3); Total Protein 7.4 g/dL (6.3-8.2)
--- NOTE | 2022-01-21 14:41 | CT ---
EXAMINATION TYPE: CT brain cspine wo con CT DLP: 1512.6 mGycm, Automated exposure control for dose reduction was used. DATE OF EXAM: 01/21/2022 2:18 PM COMPARISON: None. CLINICAL INDICATION:Female, 31 years old with history of right tongue numbness, right facial pain; Rt tongue numbness, Rt facial pain TECHNIQUE: Brain: Multiple axial CT images of the brain were obtained without IV contrast. Cspine: Axial CT images from the skull base to the inferior aspect of T2 we obtained without intraven ous contrast. Coronal and sagittal reformatted images were also reviewed. FINDINGS: Brain: Extra-axial spaces: No abnormal extra-axial fluid collections. Ventricular system: Within normal limits Cerebral parenchyma: No acute intraparenchymal hemorrhage or mass effect. The andujar-white junction is well differentiated. Cerebellum: Unremarkable. Mass effect: No evidence of midline shift. Intracranial vasculature: unremarkable Soft tissues: Normal. Calvarium/osseous structures: No depressed skull fracture. Paranasal sinuses and mastoid air cells: Clear. Visualized orbits: Orbital contents are intact. Cervical spine: Fracture: None. Osseous structures: Unremarkable Vertebral alignment: Within normal limits. Spinal canal/Neural Foramina: No evidence of significant spinal canal narrowing. No evidence for sign ificant neural foraminal stenosis. Neck soft tissues: Prevertebral soft tissues are within normal limits. Other: The airway is patent. The lung apices are clear. IMPRESSION: No acute intracranial process. No evidence of cervical spine fracture.
--- NOTE | 2022-01-21 16:27 | ED ---
General Adult HPI - General Chief complaint: ENT Stated complaint: ear pain, mouth & tongue numbness Time Seen by Provider: 01/21/22 13:15 Source: patient Mode of arrival: ambulatory Limitations: no limitations - History of Present Illness Initial comments: 31-year-old female with no past medical history presents emergency department reporting right-sided facial pain and right-sided tongue numbness. She reports that 7 days ago she began having intense pressure in her right ear. No hearing changes. Began having sharp shooting pains which radiated along her maxilla and mandible. Denies fevers, chills. No nasal congestion or sore throat. She went into an urgent care yesterday that placed her on amoxicillin and Naprosyn. She went to sleep and in the middle the night she had to wake up due to the shooting pain. She took gabapentin which is a medication as previous prescribed to her. Today the patient noted that the right side of her tongue became numb and she can't taste or feel anything on it. Because of her worsening symptoms she pre sents today for further evaluation. Denies history of stroke or MS. No headaches. No fevers. No head trauma. No other alleviating, precipitating or modified factors - Related Data Home Medications Medication Instructions Recorded Confirmed Desvenlafaxine [Desvenlafaxine ER] 50 mg PO DAILY 12/19/17 01/21/22 Amoxicillin 500 mg PO TID 01/21/22 01/21/22 LORazepam [Ativan] 0.25 mg PO BID PRN 01/21/22 01/21/22 Naproxen [Naprosyn] 375 mg PO BID 01/21/22 01/21/22 Allergies Allergy/AdvReac Type Severity Reaction Status Date / Time No Known Allergies Allergy Verified 01/21/22 17:20 Review of Systems ROS Statement: Those systems with pertinent positive or pertinent negative responses have been documented in the HPI. ROS Other: All systems not noted in ROS Statement are negative. Past Medical History Past Medical History: No Reported History History of Any Multi-Drug Resistant Organisms: None Reported Past Surgical History: No Surgical Hx Reported Additional Past Surgical History / Comment(s): cyst next to urethra removed. Past Anesthesia/Blood Transfusion Reactions: No Reported Reaction Past Psychological History: Anxiety, Depression, Panic Disorder, PTSD Smoking Status: Vaper Past Alcohol Use History: None Reported Past Drug Use History: None Reported - Past Family History Mother Family Medical History: No Reported History General Exam Limitations: no limitations General appearance: alert, in no apparent distress Head exam: Present: atraumatic, normocephalic, normal inspection Eye exam: Present: normal appearance, PERRL, EOMI. Absent: scleral icterus, conjunctival injection, periorbital swelling ENT exam: Present: mucous membranes moist, other (tenderness to palpation of the v2/v3 distribution of trigeminal nerve. ) Neck exam: Present: normal inspection. Absent: tenderness, meningismus, lymphadenopathy Respiratory exam: Present: normal lung sounds bilaterally. Absent: respiratory distress, wheezes, rales, rhonchi, stridor Cardiovascular Exam: Present: regular rate, normal rhythm, normal heart sounds. Absent: systolic murmur, diastolic murmur, rubs, gallop, clicks GI/Abdominal exam: Present: soft, normal bowel sounds. Absent: distended, tenderness, guarding, rebound, rigid Extremities exam: Present: normal inspection, full ROM, normal capillary refill. Absent: tenderness, pedal edema, joint swelling, calf tenderness Back exam: Present: normal inspection Neurological exam: Present: alert, oriented X3, CN II-XII intact Psychiatric exam: Present: normal affect, normal mood Skin exam: Present: warm, dry, intact, normal color. Absent: rash Course Vital Signs 01/21/22 01/21/22 01/21/22 13:11 19:32 21:46 Temperature 98.5 F 98.2 F Pulse Rate 79 81 Pulse Rate [ 86 Pulse Oximetery ] Respiratory 18 16 16 Rate Blood Pressure 127/74 101/58 Blood Pressure 123/85 [Right Arm] O2 Sat by Pulse 99 97 99 Oximetry Medical Decision Making - Medical Decision Making Upon arrival patient was placed into room 21. A thorough history and physical exam was performed. NIH is negative. Laboratory studies are completed and the patient goes for CT of her head. Upon return the results I did discuss them with Dr. Sexton. He is concerned for a trigeminal neuralgia. States that the tongue sensory is innervated by the trigeminal nerve. He recommends admission for MRI and neurology consultation if the patient is willing. Can be followed on an outpatient basis. This is proposed to the patient she report her to be observed in the emergency department. Patient will be admitted to [facility]. They did accept the admission. Dr. Frey will be placed on consult. I did order the MRI. - Lab Data Result diagrams: 01/21/22 13:56 01/21/22 13:56 Lab Results 01/21/22 01/21/22 01/21/22 Range/Units 13:56 13:56 13:56 WBC 8.8 (3.8-10.6) k/uL RBC 5.68 H (3.80-5.40) m/uL Hgb 12.9 (11.4-16.0) gm/dL Hct 41.2 (34.0-46.0) % MCV 72.5 L (80.0-100.0) fL MCH 22.7 L (25.0-35.0) pg MCHC 31.3 (31.0-37.0) g/dL RDW 13.7 (11.5-15.5) % Plt Count 291 (150-450) k/uL MPV 7.9 Neutrophils % 54 % Lymphocytes % 39 % Monocytes % 4 % Eosinophils % 1 % Basophils % 1 % Neutrophils # 4.7 (1.3-7.7) k/uL Lymphocytes # 3.4 (1.0-4.8) k/uL Monocytes # 0.4 (0-1.0) k/uL Eosinophils # 0.1 (0-0.7) k/uL Basophils # 0.1 (0-0.2) k/uL Microcytosis Slight Sodium (137-145) mmol/L Potassium (3.5-5.1) mmol/L Chloride (98-107) mmol/L Carbon Dioxide (22-30) mmol/L Anion Gap mmol/L BUN (7-17) mg/dL Creatinine (0.52-1.04) mg/dL Est GFR (CKD-EPI)AfAm (>60 ml/min/1.73 sqM) Est GFR (CKD-EPI)NonAf (>60 ml/min/1.73 sqM) Glucose (74-99) mg/dL Calcium (8.4-10.2) mg/dL Total Bilirubin (0.2-1.3) mg/dL AST (14-36) U/L ALT (4-34) U/L Alkaline Phosphatase (38-126) U/L C-Reactive Protein (<1.0) mg/dL Total Protein (6.3-8.2) g/dL Albumin (3.5-5.0) g/dL Urine Color Light Yellow Urine Appearance Clear (Clear) Urine pH 6.5 (5.0-8.0) Ur Specific J[place] 1.010 (1.001-1.035) Urine Protein Negative (Negative) Urine Glucose (UA) Negative (Negative) Urine Ketones Negative (Negative) Urine Blood Negative (Negative) Urine Nitrite Negative (Negative) Urine Bilirubin Negative (Negative) Urine Urobilinogen <2.0 (<2.0) mg/dL Ur Leukocyte Esterase Negative (Negative) Urine HCG, Qual Not Detected (Not Detectd) 01/21/22 Range/Units 13:56 WBC (3.8-10.6) k/uL RBC (3.80-5.40) m/uL Hgb (11.4-16.0) gm/dL Hct (34.0-46.0) % MCV (80.0-100.0) fL MCH (25.0-35.0) pg MCHC (31.0-37.0) g/dL RDW (11.5-15.5) % Plt Count (150-450) k/uL MPV Neutrophils % % Lymphocytes % % Monocytes % % Eosinophils % % Basophils % % Neutrophils # (1.3-7.7) k/uL Lymphocytes # (1.0-4.8) k/uL Monocytes # (0-1.0) k/uL Eosinophils # (0-0.7) k/uL Basophils # (0-0.2) k/uL Microcytosis Sodium 139 (137-145) mmol/L Potassium 3.9 (3.5-5.1) mmol/L Chloride 106 (98-107) mmol/L Carbon Dioxide 24 (22-30) mmol/L Anion Gap 9 mmol/L BUN 13 (7-17) mg/dL Creatinine 0.61 (0.52-1.04) mg/dL Est GFR (CKD-EPI)AfAm >90 (>60 ml/min/1.73 sqM) Est GFR (CKD-EPI)NonAf >90 (>60 ml/min/1.73 sqM) Glucose 81 (74-99) mg/dL Calcium 9.4 (8.4-10.2) mg/dL Total Bilirubin 0.5 (0.2-1.3) mg/dL AST 24 (14-36) U/L ALT 16 (4-34) U/L Alkaline Phosphatase 84 (38-126) U/L C-Reactive Protein <0.5 (<1.0) mg/dL Total Protein 7.4 (6.3-8.2) g/dL Albumin 4.6 (3.5-5.0) g/dL Urine Color Urine Appearance (Clear) Urine pH (5.0-8.0) Ur Specific Jasper (1.001-1.035) Urine Protein (Negative) Urine Glucose (UA) (Negative) Urine Ketones (Negative) Urine Blood (Negative) Urine Nitrite (Negative) Urine Bilirubin (Negative) Urine Urobilinogen (<2.0) mg/dL Ur Leukocyte Esterase (Negative) Urine HCG, Qual (Not Detectd) Disposition Clinical Impression: Numbness of tongue, Right sided facial pain, Trigeminal neuralgia of right side of face Disposition: ADMITTED IP TO THIS [facility] Condition: Stable Is patient prescribed a controlled substance at d/c from ED?: No Time of Disposition: 16:31 Decision to Admit Reason: Admit from EC Decision Date: 01/21/22 Decision Time: 16:31
[2022-01-21] MEDS ORDERED: IBUPROFEN 400 MG TAB PO PRN (16:31)
[2022-01-21] MEDS ORDERED: NALOXONE 0.4 MG/ML 1 ML VIAL IV PRN ×2 (16:31→17:10)
[2022-01-21] MEDS ORDERED: ACETAMINOPHEN TAB 325 MG TAB PO PRN (17:10)
[2022-01-21] MEDS ORDERED: ALPRAZolam 0.25 MG TAB PO PRN (17:10)
[2022-01-21] MEDS ORDERED: ONDANSETRON 4 MG/2 ML VIAL IVP PRN (17:10)
--- NOTE | 2022-01-21 17:38 | P.HPIM ---
History of Present Illness H&P Date: 01/21/22 Chief Complaint: Right-sided facial pain 51-year-old female with a history of depression presented to the hospital with complaints of right-sided facial numbness and right-sided tongue numbness. The problem started 7 days ago with a progressing to today's severity. She also describes intense pressure in the right ear. She also felt some pressure today in the left ear. There is no discharge from the ears. She had denied any chest pain or nausea or vomiting. She denied any focal neurological deficit or extremity numbness. Her speech and memory is normal. No documented family history of multiple sclerosis or neurological diseases. She was prescribed antibiotic and Naprosyn at the urgent care yesterday but did not help with the symptoms. She decided to come to the hospital for that reason. She also has some shooting pain on the right face. In the ED her initial workup was unremarkable. CT had without contrast was unremarkable for acute ischemia or hemorrhage. Labs are grossly normal. Vital signs were normal. The neurologist was contacted by ED physician and recommended admission to observation with MRI of the brain to rule out neurological causes. Past Medical History Past Medical History: No Reported History History of Any Multi-Drug Resistant Organisms: None Reported Past Surgical History: No Surgical Hx Reported Additional Past Surgical History / Comment(s): cyst next to urethra removed. Past Anesthesia/Blood Transfusion Reactions: No Reported Reaction Past Psychological History: Anxiety, Depression, Panic Disorder, PTSD Smoking Status: Vaper Past Alcohol Use History: None Reported Past Drug Use History: None Reported - Past Family History Mother Family Medical History: No Reported History Medications and Allergies Home Medications Medication Instructions Recorded Confirmed Type Desvenlafaxine [Desvenlafaxine ER] 50 mg PO DAILY 12/19/17 05/25/21 History Amoxicillin 500 mg PO TID 01/21/22 01/21/22 History LORazepam [Ativan] 0.25 mg PO BID PRN 01/21/22 01/21/22 History Naproxen [Naprosyn] 375 mg PO BID 01/21/22 01/21/22 History Allergies Allergy/AdvReac Type Severity Reaction Status Date / Time No Known Allergies Allergy Verified 01/21/22 17:20 Physical Exam Vitals: Vital Signs Temp Pulse Resp BP Pulse Ox 01/21/22 13:11 98.5 F 79 18 127/74 99 Intake and Output 01/21/22 01/21/22 01/21/22 06:59 14:59 22:59 Other: Weight 83.461 kg Gen.: The patient is alert and oriented 3. She is not in acute distress Neck supple no JVD Neuro: Alert and oriented 4. Speech is normal and fluent. Memory is intact. Cranial nerves grossly intact. Face is symmetrical. Muscle tone is symmetric is equal and symmetrical in both upper and lower extremities. Heart: Sinus rhythm. No murmurs Lungs: Clear to auscultation. No crackles or wheezes Skin: Warm and dry. Multiple tattoos. Ear exam: Right ear some erythema and cerumen seen. There is no discharge. There is a mild swelling of the tympanic membrane. Left ear. Normal exam. Results CBC & Chem 7: 01/21/22 13:56 01/21/22 13:56 Labs: Abnormal Lab Results - Last 24 Hours (Table) 01/21/22 Range/Units 13:56 RBC 5.68 H (3.80-5.40) m/uL MCV 72.5 L (80.0-100.0) fL MCH 22.7 L (25.0-35.0) pg Assessment and Plan Assessment: 31-year-old female with history of depression presented to the hospital with right-sided facial numbness and tongue numbness Right-sided facial numbness and tenderness Right-sided facial pain Unknown etiology. Cause to be determined. Neurology consulted. MRI of the brain ordered. Neuro checks per protocol. When necessary pain medications. When necessary anxiolytics. Possibly related to ear infection. Recommended to continue antibiotic with amoxicillin 500 mg every 8 hours in and while inpatient. Follow further neurology recommendations. DVT prophylaxis, some mechanical illness Disposition: Pending urology recommendation an MRI of the brain
[2022-01-21] MEDS: AMOXICILLIN 500 MG CAP PO SCH (18:28)
[2022-01-22] MEDS: AMOXICILLIN 500 MG CAP PO SCH ×4 (00:38→23:26)
[2022-01-22 09:14] LABS: HCT 37.5 % (37.2-46.3); HGB 11.3 g/dL (12.0-15.0); MCH 22.3 pg (27.0-32.0); MCHC 30.1 g/dL (32.0-37.0); Mean Platelet Volume 10.9 fL (9.5-12.2); NRBC Per 100 WBC 0 /100 WBCS (0.0-0.0); Platelet Count 289 X 10*3/uL (140-440); RBC 5.07 X 10*6/uL (4.10-5.20); RDW 14.8 % (11.5-14.5); WBC 10.37 X 10*3/uL (4.50-10.00)
[2022-01-22 10:04] LABS: African American GFR (CKD) 134.7 (60.0-200.0); Anion Gap 10.5 mmol/L (10.00-18.00); BUN/Creat Ratio 26.43 Ratio (12.00-20.00); Blood Urea Nitrogen 18.5 mg/dL (9.0-27.0); Calcium 8.8 mg/dL (8.7-10.3); Carbon Dioxide 21.5 mmol/L (20.0-27.5); Non-African American GFR(CKD) 116.3 (60.0-200.0); Potassium 4.5 mmol/L (3.5-5.5)
[2022-01-22 10:56] LABS: Basophils # (A) 0.06 X 10*3/uL (0.00-0.10); Basophils % (A) 0.6 %; Eosinophils # (A) 0.17 X 10*3/uL (0.04-0.35); Eosinophils % (A) 1.6 %; Immature Grans, Automated 0.6 %; Lymphocytes # (A) 3.88 X 10*3/uL (0.90-5.00); Lymphocytes % (A) 37.4 %; Monocytes # (A) 0.66 X 10*3/uL (0.20-1.00); Monocytes % (A) 6.4 %; Neutrophils # (A) 5.54 X 10*3/uL (1.80-7.70); Neutrophils % (A) 53.4 %
--- NOTE | 2022-01-22 14:05 | P.CNNES ---
History of Present Illness Consult date: 01/22/22 Requesting physician: Eden Florence Reason for Consult: right tongue numbness, right facial pain, possible trigeminal neuralgia History of Present Illness: Patient is a 31-year-old female came to the hospital yesterday at 12:53 PM for evaluation of right ear pain and right sided tongue numbness. Patient states her symptoms started about 8 days ago, when she noticed sharp pain in the right ear, that occurred off and on throughout the day. The intermittent sharp pain persisted the next day. On day 3, the pain started shooting to the catholic and the jawline on the right side. The pain would wake her up from sleep. On day #4, she started noticing soreness in right side of the neck. On day #6, Friday she still had shooting pain on the right side, but also woke up with numbness of the right side of the tongue and loss of taste sensation. On Friday, which is yesterday, she went to walk-in clinic and was diagnosed with possible ear infection, right more than left and was given a course of amoxicillin. Patient states that today the pain in the ear has gone, but she continues to have numbness of right side of the tongue. She is noticing some twitching of the right eye. She still cannot taste anything on the right side. Neck is hurting slightly on the right side. Patient denies any other symptoms like dysphagia, visual disturbance, slurred speech facial droop. Patient at present complaining of pain in the right retroauricular (mastoid) region. Vital signs on arrival blood pressure 127/74, pulse rate 79, temperature 98.5. Blood test shows normal WBC, hemoglobin 12.9, platelets 291. CMP is normal, UA negative. Urine hCG negative. CT head showed no acute intracranial process. CT of the cervical spine showed no evidence of cervical spine fracture. On my review of CT head, there is no acute process. Visualized paranasal sinuses are clear. Patient states that she has history of very transient, brief pain in the right ear, that lasted for about a second. It appears very sporadically, no more than once or twice a year, does not remember for how long has been happening. Never had continuous pain like this. Patient states that she has found ticks on herself when she camped in the past, but nothing had ever stick on her. She has never been vaccinated for bauer virus. Patient takes Desvenlafaxine 50 mg daily, naproxen, Ativan when necessary. Patient has history of anxiety and depression. Patient states that she has smoked half pack per day for 15 years, stopped tobacco and started Vaping daily for the last 6 months. He says that she vapes "every day, all day". She drinks alcohol very occasionally. She used to smoke weed a lot, but quit smoking weed 5 years ago. Review of Systems All other review of systems reviewed, unremarkable except as mentioned in HPI. Past Medical History Past Medical History: No Reported History History of Any Multi-Drug Resistant Organisms: None Reported Past Surgical History: No Surgical Hx Reported Additional Past Surgical History / Comment(s): cyst next to urethra removed. Past Anesthesia/Blood Transfusion Reactions: No Reported Reaction Past Psychological History: Anxiety, Depression, Panic Disorder, PTSD Smoking Status: Vaper Past Alcohol Use History: None Reported Past Drug Use History: None Reported - Past Family History Mother Family Medical History: No Reported History Medications and Allergies Home Medications Medication Instructions Recorded Confirmed Type Desvenlafaxine [Desvenlafaxine ER] 50 mg PO DAILY 12/19/17 01/21/22 History Amoxicillin 500 mg PO TID 01/21/22 01/21/22 History LORazepam [Ativan] 0.25 mg PO BID PRN 01/21/22 01/21/22 History Naproxen [Naprosyn] 375 mg PO BID 01/21/22 01/21/22 History Allergies Allergy/AdvReac Type Severity Reaction Status Date / Time No Known Allergies Allergy Verified 01/21/22 17:20 Physical Examination - Vital Signs Vital Signs: Vital Signs Temp Pulse Pulse Resp BP BP Pulse Ox 01/22/22 01:41 98.4 F 76 16 100/64 99 01/21/22 21:46 98.2 F 86 16 123/85 99 01/21/22 19:32 81 16 101/58 97 01/21/22 13:11 98.5 F 79 18 127/74 99 Intake and Output 01/21/22 01/22/22 01/22/22 22:59 06:59 14:59 Output Total 0 Balance 0 Output: Urine 0 Other: # Voids 2 Weight 83.461 kg Patient is a young female, very pleasant, in no acute distress. Patient is alert awake oriented to time place and person. Speech and language functions are normal. Attention, concentration and fund of knowledge is adequate. No aphasia or dysarthria. On cranial examination, pupils are equal, round and reacting to light, visual dawson are full on confrontation, with no neglect on double simultaneous stimulation. Her extraocular muscles are intact with no nystagmus. Patient has very subtle right facial weakness noticeable only on active testing and very minimal weakness of the right eyelid. Her forehead wrinkling appears normal to minimally decreased right. Her tongue protrudes to the midline. Palatal elevation and sensation normal, hearing is normal bilaterally and shoulder shrug normal, facial sensation normal for touch and temperature in all 3 divisions of trigeminal nerve bilaterally. Sensation to touch over the tongue is decreased on the right side. Otologic examination revealed normal appearing eardrums bilaterally. No inflammation on either side. No excessive wax. Examination of oral cavity revealed no obvious mass. Dentition appears normal. On muscle strength testing, there is no pronator drift and the strength is normal in arms and legs distally and proximally. Deep tendon reflexes are symmetric, 2 at the biceps, 2 brachioradialis, 2 at the knees 1 ankles and plantars downgoing bilaterally. Sensory to touch and temperature is equal bilaterally, with no neglect. Cerebellar function showed no ataxia for [id number] testing. No dysdiad ochokinesia. Tone and bulk of muscles normal. Gait normal. On general examination, there is no carotid bruit or murmur, S1-S2 audible. Abdomen is soft nontender. No organomegaly, bowel sounds present. Chest is clear. Peripheral pulses are present. No edema. No cervical lymphadenopathy. Results - Laboratory Findings CBC and BMP: 01/22/22 05:26 01/22/22 05:26 Abnormal Lab Findings: Abnormal Labs 01/21/22 01/22/22 13:56 05:26 WBC 10.37 H RBC 5.68 H Hgb 11.3 L MCV 72.5 L 74.0 L MCH 22.7 L 22.3 L MCHC 30.1 L RDW 14.8 H Assessment and Plan Assessment: * 31-year-old female with 8 days history of intermittent Right auricular and retroauricular pain, with subsequent radiation to the right [place] and Mandibular region, now has developed loss of tactile and taste sensation over right half of the tongue since last 2 days. Examination reveals very subtle right facial weakness, perhaps peripheral type. Symptoms appears ?viral in nature, perhaps mild or atypical Veloz's palsy. Rule out structural abnormalities. * Anxiety, depression Plan: * MRI of the brain with and without contrast, rule out mass lesion, rule out demyelinating disease. * If no obvious structural abnormality identified, then would consider treatment in the lines of treatment for possible Veloz's palsy, with a course of prednisone and Valtrex. * If the symptoms do not resolve after above treatment, then would recommend ENT consult as an outpatient. * We will check Lyme titer, B12, folate * Neurology will follow after MRI is completed. * Thank you for the consult. Update 4 PM: MRI of the brain was completed. I personally reviewed MRI. No acute infarct. No evidence of demyelinating disease. No enhancement of the right CP angle. There is some CSF signal involving the left CP angle. Await official MRI report. If the official report is negative, may discharge patient on prednisone 60 mg daily for 3 days, then decrease by 10 mg daily until off. Also Valtrex 1 g by mouth 3 times a day for 7 days. Prescriptions were provided to the nurse. Patient was recommended to follow-up with neurologist as an outpatient. B12 is 377, folate 9.4. Lyme titer still pending. This can be followed up as an outpatient. Time with Patient: Greater than 30
[2022-01-22] MEDS ORDERED: LORazepam 0.5 MG TAB PO PRN (18:35)
--- NOTE | 2022-01-22 19:08 | P.PN ---
Subjective Progress Note Date: 01/22/22 Patient is a 31-year-old female wiht depression presented to the hospital with complaints of right-sided facial numbness and right-sided tongue numbness. The problem started 7 days prior to admission. She was prescribed antibiotic and Naprosyn at the urgent care the day before admission and took them for less than 24 hours but they did not help with the symptoms. She decided to come to the hospital for that reason. In the ED her initial workup was unremarkable. CT had without contrast was unremarkable for acute ischemia or hemorrhage. Labs are grossly normal. Vital signs were normal. Neurology was contacted and recommended observation for MRI to rule out possible structural lesion. She was seen by neurology and if MRI is negative there is some concern of Veloz's palsy and they recommended prednisone and Valtrex. MRI is currently pending. Patient seen and examined at bedside. She is frustrated that her MRI results are not back. She has no additional complaints at this time. General: non toxic, no distress, appears at stated age Derm: warm, dry Head: atraumatic, normocephalic, symmetric Eyes: EOMI, no lid lag, anicteric sclera Mouth: no lip lesion, mucus membranes moist Cardiovascular: S1S2 reg, no murmur, positive posterior tibial pulse bilateral, Lungs: CTA bilateral, no rhonchi, no rales , no accessory muscle use Neuro: CN II-XI grossly intact, no focal neuro deficits Psych: Alert, oriented, appropriate affect Assessment/plan: Right sided facial/ tongue numbness - await MRI if negative start prednisone and valtrex - neuro rec apprecatied Depression - resume home medication anticpate home in AM Objective - Vital Signs Vital signs: Vital Signs Temp 98.4 F 01/22/22 15:00 Pulse 85 01/22/22 15:00 Resp 18 01/22/22 15:00 BP 122/81 01/22/22 15:00 Pulse Ox 99 01/22/22 15:00 FiO2 Intake & Output 01/22/22 01/22/22 01/23/22 06:59 18:59 06:59 Output Total 0 Balance 0 Weight 83.461 kg Output: Urine 0 Other: # Voids 2 10 # Bowel Movements 1 - Labs CBC & Chem 7: 01/22/22 05:26 01/22/22 05:26 Labs: Abnormal Lab Results - Last 24 Hours (Table) 01/22/22 01/22/22 Range/Units 05:26 05:26 WBC 10.37 H (4.50-10.00) X 10*3/uL Hgb 11.3 L (12.0-15.0) g/dL MCV 74.0 L (80.0-97.0) fL MCH 22.3 L (27.0-32.0) pg MCHC 30.1 L (32.0-37.0) g/dL RDW 14.8 H (11.5-14.5) % Immature Gran # 0.06 H (0.00-0.04) X 10*3/uL BUN/Creatinine Ratio 26.43 H (12.00-20.00) Ratio
--- NOTE | 2022-01-22 23:58 | MR ---
EXAMINATION TYPE: MR brain wo/w con DATE OF EXAM: 01/22/2022 COMPARISON: CT brain from yesterday HISTORY: Trigeminal neuralgia TECHNIQUE: Multiplanar, multisequence images of the brain and brainstem is performed without and with IV contras t, utilizing 8 mL intravenous Gadavist . FINDINGS: Diffusion weighted images demonstrate no evidence of a recent infarct or other diffusion ab normality. There is no extra-axial fluid collection or significant white matter signal abnormality. The ventricular system and cisternal spaces are normal in size and appearance. The brain volume is age appropriate. Midline structures demonstrate normal morphology. The craniocervical junction appears within normal limits. Post contrast images demonstrate no abnormal enhancement. The dural venous sinuses appear pa tent. The visualized sinuses are clear and the globes are intact. IMPRESSION: Unremarkable study.
[2022-01-23 07:47] VITALS: RESP 18
[2022-01-23 08:16] VITALS: BP 101/68; PULSE 73; TEMP 98.2
[2022-01-23] MEDS ORDERED: valACYclovir HCL 1,000 MG TABLET PO STA (08:39)
[2022-01-23] MEDS ORDERED: predniSONE 20 MG TAB PO STA (08:39)
[2022-01-23] MEDS ORDERED: DESVENLAFAXINE SUCCINATE 50 MG TAB.ER.24H PO SCH (09:00)
[2022-01-23] MEDS: AMOXICILLIN 500 MG CAP PO SCH (09:19)
[2022-01-23 13:09] LABS: Lyme IgG/IgM 0.08 Index
--- NOTE | 2022-01-23 16:47 | P.DS ---
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 The problem started 7 days prior to admission. She was prescribed antibiotic and Naprosyn at the urgent care the day before admission and took them for less than 24 hours but they did not help with the symptoms. She decided to come to the hospital for that reason. In the ED her initial workup was unremarkable. CT had without contrast was unremarkable for acute ischemia or hemorrhage. Labs are grossly normal. Vital signs were normal. Neurology was contacted and recommended observation for MRI to rule out possible structural lesion. She was seen by neurology and if MRI is negative there is some concern of Veloz's palsy and they recommended prednisone and Valtrex. MRI was completed and is normal. She was determined stable for discharge home. She was given an RX for a 1 week of predniosne taper, and 3 days of valtrex. She will also complete her amoxicilln Rx for her recent ear infection. She will establish a PCP and has been given several options for this, should her symptoms continue she will follow with a neurologist. Patient seen and examined at bedside. She conitnues to have some tast alteration on the right, she complains of some overall head "itching" or "tightness". Her ear pain has diminished. Vital signs reviewed and stable. General: nontoxic, no distress, appears at stated age Derm: warm, dry Head: atraumatic, normocephalic, symmetric Eyes: EOMI, no lid lag, anicteric sclera Mouth: no lip lesion, mucus membranes moist Cardiovascular: S1S2 reg, no murmur, positive posterior tibial pulse bilateral, Lungs: CTA bilateral, no rhonchi, no rales , no accessory muscle use Abdominal: soft, nontender to palpation, no guarding, no appreciable organomegaly Ext: no gross muscle atrophy, no edema, no contractures Neuro: CN II-XI grossly intact, no focal neuro deficits Psych: Alert, oriented, appropriate affect A total of 25 minutes of time were spent preparing this complex discharge summary. Patient was discharged on 01/23/22. Patient Condition at Discharge: Stable Plan - Discharge Summary Discharge Rx Participant: Yes New Discharge Prescriptions: New predniSONE 0 mg PO DIRECTED #21 tab valACYclovir HCL [Valtrex] 1,000 mg PO TID #8 tablet Continue Desvenlafaxine [Desvenlafaxine ER] 50 mg PO DAILY LORazepam [Ativan] 0.25 mg PO BID PRN PRN Reason: Anxiety Amoxicillin 500 mg PO TID Changed Naproxen [Naprosyn] 375 mg PO BID PRN #0 PRN Reason: Pain Discharge Medication List Desvenlafaxine [Desvenlafaxine ER] 50 mg PO DAILY 12/19/17 [History] Amoxicillin 500 mg PO TID 01/21/22 [History] LORazepam [Ativan] 0.25 mg PO BID PRN 01/21/22 [History] Naproxen [Naprosyn] 375 mg PO BID PRN #0 01/23/22 [Rx] predniSONE 0 mg PO DIRECTED #21 tab 01/23/22 [Rx] valACYclovir HCL [Valtrex] 1,000 mg PO TID #8 tablet 01/23/22 [Rx] Follow up Appointment(s)/Referral(s): Abi Vasquez MD [REFERRING] - As Needed (local neurology) Jah Rock MD [STAFF PHYSICIAN] - As Needed (PCP) Maycol Valdivia MD [STAFF PHYSICIAN] - As Needed ([facility]) None,Stated [Primary Care Provider] - 1-2 days Patient Instructions/Handouts: Atypical Facial Pain (GEN) Discharge/Stand Alone Forms: Work/School Release / Restrict Discharge Disposition: HOME SELF-CARE
--- NOTE | 2022-01-24 08:49 | P.PN ---
Subjective Progress Note Date: 01/23/22 Patient was seen for a follow-up. Denies any new neurological symptoms. Continues to have lack of taste sensation on the right side of the tongue. Continues to have some mild headache mainly retroauricular region. No numbness of the tongue. Objective - Vital Signs Vital signs: Vital Signs Temp 98.2 F 01/23/22 07:00 Pulse 73 01/23/22 07:00 Resp 18 01/23/22 07:43 BP 101/68 01/23/22 07:00 Pulse Ox 98 01/23/22 07:00 FiO2 Intake & Output 01/22/22 01/23/22 01/23/22 18:59 06:59 18:59 Other: # Voids 10 3 # Bowel Movements 1 - Exam Mental status, speech and language functions are normal. Examination only significant for very minimal, subtle right facial weakness. - Labs CBC & Chem 7: 01/22/22 05:26 01/22/22 05:26 Labs: Abnormal Lab Results - Last 24 Hours (Table) 01/22/22 01/22/22 Range/Units 05:26 05:26 WBC 10.37 H (4.50-10.00) X 10*3/uL Hgb 11.3 L (12.0-15.0) g/dL MCV 74.0 L (80.0-97.0) fL MCH 22.3 L (27.0-32.0) pg MCHC 30.1 L (32.0-37.0) g/dL RDW 14.8 H (11.5-14.5) % Immature Gran # 0.06 H (0.00-0.04) X 10*3/uL BUN/Creatinine Ratio 26.43 H (12.00-20.00) Ratio Assessment and Plan Assessment: * 31-year-old female with 8 days history of intermittent Right auricular and retroauricular pain, with subsequent radiation to the right [place] and Mandibular region, now has developed loss of tactile and taste sensation over right half of the tongue since last 2 days. Examination reveals very subtle right facial weakness, perhaps peripheral type. Symptoms appears ?viral in nature, perhaps mild or atypical Veloz's palsy. Rule out structural abnormalities. * Anxiety, depression Plan: * MRI of the brain with and without contrast reported as normal. I reviewed it with about the lesion in the left petrous temporal region, which he believes is slight fluid in the left mastoid region. No acute process on the symptomatic right side. * Lyme titer negative, B12 377, folate 9.4, both normal * Okay to discharge patient on prednisone 60 mg daily for 3 days, then decrease by 10 mg daily until off. Also Valtrex 1 g by mouth 3 times a day for 7 days. * Discussed with primary physician.
== END 2022-01-23 11:10 | disposition home or self-care (01) ==
LOC: EC 12:53 → 6NMEDSUR 16:31
PROVIDERS: ADMIT Student in an Organized Health Care Education/Training Program; ATTEND Student in an Organized Health Care Education/Training Program
DX: R20.0 Anesthesia of skin (principal); R51.9 Headache, unspecified; H66.91 Otitis media, unspecified, right ear; F32.A Depression, unspecified; F41.0 Panic disorder [episodic paroxysmal anxiety]; F43.10 Post-traumatic stress disorder, unspecified; F17.290 Nicotine dependence, other tobacco product, uncomplicated; Z79.899 Other long term (current) drug therapy
CPT/HCPCS: 99285; 36415; 80053; 80048; 82607; 82746; 85025 ×2; 86140; 81003; 81025; 86618; 72125; 70450; 70553; G0378 ×3; J7512; A9585

== ENCOUNTER → 2023-02-11 | Outpatient (CLI) | payer SELFPAY ==
[2023-02-11 20:46] LABS: HCT 38.3 % (37.2-46.3); MCH 22.2 pg (27.0-32.0); MCHC 31.3 d/dL (32.0-37.0); MCV 70.8 FL (80.0-97.0); Mean Platelet Volume 10.6 FL (9.5-12.2); NRBC Per 100 WBC 0 X 10*3/uL (0.00-0.01); Platelet Count 307 X 10*3/uL (140-440); RBC 5.41 X 10*6/uL (4.10-5.20); RDW 14.6 % (11.5-14.5)
[2023-02-11 20:58] LABS: ALT 15 U/L (8-44); AST 19 U/L (13-35); Albumin 4.7 d/dL (3.8-4.9); Albumin/Globulin Ratio 1.88 Ratio (1.60-3.17); Alkaline Phosphatase 81 U/L (41-126); BUN/Creat Ratio 13.25 Ratio (12.00-20.00); Blood Urea Nitrogen 10.6 mg/dL (9.0-27.0); C Reactive Protein <0.30 mg/dL (0.00-0.80); Calcium 9.7 mg/dL (8.7-10.3); Carbon Dioxide 24.6 mmol/L (21.6-31.8); Chloride 104 mmol/L (96-109); Chol/HDL Ratio 3.45 Ratio; Globulin 2.5 d/dL (1.6-3.3); Glucose 87 mg/dL (70-110); LDL Cholesterol,Calculated 116.5 mg/dL (0.0-131.0); Potassium 4.8 mmol/L (3.5-5.5); Sodium 138 mmol/L (135-145); Total Bilirubin 0.4 mg/dL (0.3-1.2); Total Protein 7.2 d/dL (6.2-8.2)
[2023-02-11 21:15] LABS: Basophils # (A) 0.04 X 10*3/uL (0.00-0.10); Basophils % (A) 0.5 %; Eosinophils # (A) 0.07 X 10*3/uL (0.04-0.35); Eosinophils % (A) 0.9 %; Lymphocytes # (A) 2.65 X 10*3/uL (0.90-5.00); Lymphocytes % (A) 34.9 %; Microcytosis (M) 2+; Monocytes # (A) 0.45 X 10*3/uL (0.20-1.00); Monocytes % (A) 5.9 %; Neutrophils # (A) 4.37 X 10*3/uL (1.80-7.70); Neutrophils % (A) 57.5 %
[2023-02-13 06:17] LABS: Vit B1(Thiamine) 57 ug/L (38-122)
== END | disposition home or self-care (01) ==
LOC: LABWHC1 13:56
PROVIDERS: ATTEND Physician Assistant Medical
DX: Z00.00 Encounter for general adult medical examination without abnormal findings (principal); Z13.220 Encounter for screening for lipoid disorders; G25.81 Restless legs syndrome; R53.83 Other fatigue
CPT/HCPCS: 36415; 80053; 80061; 82306; 82607; 83735; 84425; 84443; 84630; 85025; 86140

== ENCOUNTER → 2023-02-28 | Day surgery (SDC) | payer SELFPAY ==
[2023-02-27 15:43] VITALS: BMI 34.0
[~2023-02-28] MED LIST changes: -CLINDAMYCIN 900 MG in DEXTROSE 5% IN WATER 50 ML IVPB PRN; +LACTATED RINGERS 1,000 ML IV SCH; +LIDOCAINE 1% (10MG/ML) FOR IV START INTRADERMA PRN; +LIDOCAINE 2% INJ 20 MG/ML (2 ML VIAL) ONE; +MIDAZOLAM 2 MG/2 ML VIAL ONE; +PROPOFOL 10 MG/ML 20 ML VIAL IV ONE
[2023-02-28 07:44] VITALS: TEMP 97.3
--- NOTE | 2023-02-28 08:46 | P.PCN ---
Date of Procedure: 02/28/23 Procedure(s) Performed: Brief history: Patient is a pleasant 32-year-old white female scheduled for an elective upper endoscopy as well as colonoscopy as a part of evaluation of Hemoccult-positive stool last GI bleed Procedure performed: Esophagogastroduodenoscopy with biopsy Colonoscopy Preoperative diagnosis: Hemoccult-positive stool/GI bleed Anesthesia: [facility] Procedure: After informed consent was obtained from the patient was brought into the endoscopy unit and IV sedation was administered by anesthesia under continuous monitoring. Initially upper endoscopy was done. The Olympus GF 160 video endoscope was inserted inserted into the mouth and esophagus intubated without any difficulty and was gradually advanced into the stomach and duodenum and carefully examined. The bulb and second part of the duodenum appeared normal. The scope was then withdrawn into the stomach adequately insufflated with air and upon careful examination the antrum and body, cardia and fundus had diffuse mild gastritis and biopsies were done from the antrum. ope was then withdrawn into the esophagus. The GE junction was located at 40 cm to the incisors. It appeared regular with no erythema erosions or ulcerations. Rest of the esophagus appeared normal. Patient tolerated the procedure well. At this time the patient continued to remain sedation. Initial digital rectal examination was normal. Olympus CF 160 video colonoscope was then inserted into the rectum and gradually advanced to the cecum without any difficulty. Careful examination was performed as the scope was gradually being withdrawn. The prep was excellent. The cecum, ascending colon, transverse colon, descending colon, sigmoid colon and rectum appeared normal. Retroflexion was performed in the rectum and no lesions were noted. Patient tolerated the procedure well. Impression: 1. Upper endoscopy revealed mild diffuse gastritis but no evidence of esophagitis or peptic ulcer disease 2. Colonoscopy within normal limits with no evidence of colorectal neoplasia Recommendations: Findings of this examination were discussed with the patient as well as her family. She was advised to follow with the biopsy results. Recommend repeat screening colonoscopy at age 46.
[2023-02-28 09:06] VITALS: BP 110/75; PULSE 69; RESP 14
== END ==
LOC: ORWHC2ENDO 07:16
PROVIDERS: ATTEND Internal Medicine Gastroenterology
DX: K29.51 Unspecified chronic gastritis with bleeding (principal); B96.81 Helicobacter pylori [H. pylori] as the cause of diseases classified elsewhere; R19.5 Other fecal abnormalities; F41.9 Anxiety disorder, unspecified; F32.A Depression, unspecified; F43.10 Post-traumatic stress disorder, unspecified; Z79.899 Other long term (current) drug therapy; Z87.891 Personal history of nicotine dependence
CPT/HCPCS: 81025; 88305; 88342; 45378; 43239; J2250; J2704; J2001